=== PATIENT | female | born 1955 | race Two or more races ===

== ENCOUNTER → 2020-04-23 10:19 | Outpatient (BNVA) | payer MEDICARE, MEDICAID, SELFPAY | PROVIDERS: PCP Internal Medicine; Visit Provider Hospitalist | DX: J44.9 Chronic obstructive pulmonary disease, unspecified (principal); R06.00 Dyspnea, unspecified; G47.33 Obstructive sleep apnea (adult) (pediatric); Z79.84 Long term (current) use of oral hypoglycemic drugs; Z99.89 Dependence on other enabling machines and devices | CPT/HCPCS: 99202; 99212 ==

== ENCOUNTER → 2020-09-25 10:28 | Outpatient (BNVA) | payer MEDICARE, MEDICAID, SELFPAY | PROVIDERS: PCP Internal Medicine; Visit Provider Hospitalist | DX: R07.9 Chest pain, unspecified (principal); R06.00 Dyspnea, unspecified; G47.33 Obstructive sleep apnea (adult) (pediatric); Z99.89 Dependence on other enabling machines and devices; J41.0 Simple chronic bronchitis; R05 Cough; T46.4X5A Adverse effect of angiotensin-converting-enzyme inhibitors, initial encounter | CPT/HCPCS: 99212 ==

== ENCOUNTER → 2021-02-28 14:45 | Outpatient (BNVA) | payer MEDICARE, MEDICAID, SELFPAY | PROVIDERS: PCP Internal Medicine; Visit Provider Hospitalist | DX: R07.9 Chest pain, unspecified (principal); R06.00 Dyspnea, unspecified; G47.33 Obstructive sleep apnea (adult) (pediatric); J44.9 Chronic obstructive pulmonary disease, unspecified; R05.9 Cough, unspecified; T44.5X5A Adverse effect of predominantly beta-adrenoreceptor agonists, initial encounter; Z88.0 Allergy status to penicillin; Z88.2 Allergy status to sulfonamides; Z91.041 Radiographic dye allergy status; Z99.89 Dependence on other enabling machines and devices; Z91.19 Patient's noncompliance with other medical treatment and regimen | CPT/HCPCS: 99212 ==

== ENCOUNTER 2021-09-26 14:13 | Outpatient (REF) | payer MEDICARE, MEDICAID, SELFPAY ==
--- NOTE | ~2021-09-26 | XR_ITS ---
EXAMINATION: XR CHEST CLINICAL INFORMATION: Interstitial pulmonary disease COMPARISON: None TECHNIQUE: 2 views of the chest were obtained. FINDINGS: The cardiac and mediastinal contours are normal. The lungs are clear. There is no pleural effusion or pneumothorax. There are degenerative changes of the spine. XR/XR chest 2V IMPRESSION: No evidence for acute disease in the chest.
[2021-09-26 15:00] LABS: MANUAL DIFF FLAG NO
[2021-09-26 17:01] LABS: Basophils Absolute Auto 0.1 X10*3/uL (0.0-0.2); Basophils Percent Auto 0.6 % (0-2); Eosinophils Absolute Auto 0.2 X10*3/uL (0.0-0.4); Eosinophils Percent Auto 2.5 % (0-4); Hematocrit 41.8 % (37.0-47.0); Hemoglobin 13.3 g/dl (12.0-16.0); Imm Gran Abs Auto 0.03 X10*3/uL (0.00-0.03); Imm Gran Pct Auto 0.3 % (0.0-0.4); Lymphocytes Absolute Auto 4.2 X10*3/uL (1.2-4.9); Lymphocytes Percent Auto 43.8 % (20-40); Mean Corpuscular HGB Conc 31.8 g/dl (31.0-35.0); Mean Corpuscular Hemoglobin 26.6 pg (27.0-33.0); Mean Corpuscular Volume 83.6 fL (80.0-98.0); Mean Platelet Volume 10.6 fL (9.4-12.3); Monocytes Absolute Auto 0.7 X10*3/uL (0.1-1.2); Monocytes Percent Auto 7.5 % (2-11); Neutrophils Absolute Auto 4.3 x10*3/uL (2.0-8.3); Neutrophils Percent Auto 45.3 % (45-73); Platelet Count 327 X10*3/uL (160-400); Red Cell Distribution Width 13.5 % (11.0-16.0); White Blood Count 9.6 X10*3/uL (4.8-10.8)
[2021-09-26 18:19] LABS: Erythrocyte Sedimentation Rate 26 MM/HR (0-20)
[2021-09-29 14:57] LABS: Anti Nuclear Antibody Screen NEGATIVE (NEGATIVE)
[2021-10-04 14:37] LABS: Asperg fumigatus Precip Abs NEGATIVE (NEGATIVE); Micropoly faeni Abs NEGATIVE (NEGATIVE); Pigeon serum Abs NEGATIVE (NEGATIVE); Saccharo pora viridis Abs NEGATIVE (NEGATIVE); Thermo candidus Abs NEGATIVE (NEGATIVE); Thermoa vulgaris #1 NEGATIVE (NEGATIVE)
== END 2021-09-26 14:14 | disposition home or self-care (01) ==
LOC: HO.XRAY 14:13
PROVIDERS: PCP Internal Medicine; Visit Provider Hospitalist
DX: R07.9 Chest pain, unspecified (principal); R06.00 Dyspnea, unspecified; J41.0 Simple chronic bronchitis; G47.33 Obstructive sleep apnea (adult) (pediatric); T46.4X5A Adverse effect of angiotensin-converting-enzyme inhibitors, initial encounter; Z99.89 Dependence on other enabling machines and devices
CPT/HCPCS: 36415; 71046; 82785; 85025; 85652; 86003; 86038; 86039; 86331; 86606; 86609; 99212

== ENCOUNTER → 2021-12-19 10:12 | Outpatient (BNVA) | payer MEDICARE, SELFPAY | PROVIDERS: PCP Internal Medicine; Visit Provider Hospitalist | DX: R07.9 Chest pain, unspecified (principal); J84.9 Interstitial pulmonary disease, unspecified; J41.0 Simple chronic bronchitis; R06.00 Dyspnea, unspecified; T46.4X5A Adverse effect of angiotensin-converting-enzyme inhibitors, initial encounter | CPT/HCPCS: 99212 ==

== ENCOUNTER → 2022-07-20 09:11 | Outpatient (BNVA) | payer MEDICARE, SELFPAY | PROVIDERS: PCP Family Medicine; Visit Provider Hospitalist | DX: J41.0 Simple chronic bronchitis (principal); R07.9 Chest pain, unspecified; R06.00 Dyspnea, unspecified; T46.4X5D Adverse effect of angiotensin-converting-enzyme inhibitors, subsequent encounter | CPT/HCPCS: 99212 ==

== ENCOUNTER 2022-10-08 09:34 | Outpatient (REF) | payer MEDICARE, SELFPAY ==
--- NOTE | 2022-10-08 10:48 | PFT_ITS ---
INDICATION: COPD. SPIROMETRY: FEV1 to FVC of 77% with an FEV1 of 1.32 L, which is 49% predicted and an FVC of 1.72 L, which is 50% predicted. Significant response to bronchodilators noted. [id number] was decreased down to 42% predicted. LUNG VOLUMES: Total lung capacity 71% predicted with an expiratory reserve volume of 29% predicted. DIFFUSION CAPACITY: DLCO 54% predicted. COMPARISON: None available. INTERPRETATION: No obstructive ventilatory defect. The patient did have a significant response to bronchodilators noted and evidence of significant small airway disease, likely from reactive airways disease. The patient also has a severe decrease in the maximum voluntary ventilation secondary to likely deconditioning although cannot rule out neuromuscular conditions. The patient also has a restrictive ventilatory defect consistent with mild to moderate restrictive lung disease and a decrease in the expiratory reserve volume secondary to an elevated BMI. There is a moderate diffusion impairments that corrects to almost normal and correcting for the alveolar volume, likely secondary to hyperexpansion of the lungs. Clinical correlation warranted. MD KENDRA Anne/SCHUYLER / [id number]
== END 2022-10-08 09:35 | disposition home or self-care (01) ==
LOC: HO.RESP 09:34
PROVIDERS: PCP Family Medicine; Visit Provider Hospitalist
DX: J41.0 Simple chronic bronchitis (principal)
CPT/HCPCS: 94010; 94727; 94729

== ENCOUNTER → 2022-11-09 09:32 | Outpatient (BNVA) | payer MEDICARE, SELFPAY | PROVIDERS: Visit Provider Hospitalist | DX: J41.0 Simple chronic bronchitis (principal) | CPT/HCPCS: 94618; 99212 ==

== ENCOUNTER 2023-02-12 10:02 | Outpatient (REF) | payer MEDICARE, SELFPAY ==
--- NOTE | ~2023-02-12 | XR_ITS ---
EXAMINATION: XR CHEST CLINICAL INFORMATION: Reason for Exam R07.9 - Chest pain, unspecified COMPARISON: Chest radiograph 09/26/2021 TECHNIQUE: 2 views of the chest FINDINGS: Lines and tubes: None. Streaky right lower lung airspace opacities likely reflecting atelectasis. No pleural effusion. No pneumothorax. Unchanged cardiomediastinal silhouette. XR/XR chest 2V IMPRESSION: Streaky right lower lung airspace opacities likely reflecting atelectasis.
== END 2023-02-12 10:03 | disposition home or self-care (01) ==
LOC: HO.XRAY 10:02
PROVIDERS: PCP Family Medicine; Visit Provider Hospitalist
DX: J41.0 Simple chronic bronchitis (principal); R07.9 Chest pain, unspecified; R06.00 Dyspnea, unspecified; Z99.81 Dependence on supplemental oxygen
CPT/HCPCS: 71046; 99212

== ENCOUNTER 2023-02-12 10:02 | Outpatient (AMB) | payer MEDICARE, SELFPAY ==
--- NOTE | 2023-02-12 10:07 | MHC.OFFVIS ---
Intake Vital Signs 02/12/23 10:09 Height 5 ft 7 in Weight 222 lb BMI 34.8 Pulse 90 Pulse Source Pulse Oximeter Pulse Oximetry (%) 92 Intake Visit Reasons: copd Roving Hand Required: No Allergies Penicillins Allergy (Severe, Verified 02/12/23 10:11) Rash/Hives Sulfa (Sulfonamide Antibiotics) Allergy (Severe, Verified 02/12/23 10:11) Rash/Hives Contrast Dye Allergy (Severe, Uncoded 02/12/23 10:11) Rash HPI HPI Comments History of Present Illness Details The patient is a 67-year-old woman known history of COPD. She also complains of significant dyspnea on exertion even with minimal activity. She does have a home health aide that helps her with her activities of daily living. However she prefers not to have somebody help her with her bathing.. Therefore, she does get short of breath when she is taking a shower. She has been using the in cruise and also the Symbicort. Both inhalers have been helpful for her. It appears that with any activity she becomes very tachycardic. The patient does not desaturate below 94% which is reassuring. Also to note the patient gets short of breath with activity she also developed chest pressure. She does states she had a cardiac evaluation in the past although I do not have that available to review. In addition to that the patient has been complaining of worsening dry cough. Moderate severity. Her respiratory exam is pretty unremarkable. This is likely IVY-inhibitor related cough adverse effect. Explained to the patient we can try providing some cough suppressant. But, if the cough is no better she would be best to change the IVY-inhibitor to an ARB. 12/19/2021 the patient is here for a pulmonary follow-up visit. She continues to have difficulty with breathing. She did try the Trelegy but she did not like it. She rather be on Symbicort. Therefore will switch her back to soon record Spiriva. I did teach her how to use the Spiriva device that she has not use before. I did believe is the powder that was bothering her throat when she was using the inhaler making her symptoms worse. In the meantime the patient does have evidence of dyspnea on exertion. Will plan to do an overnight oximetry on room air to assess for any nocturnal hypoxia in view of her underlying COPD. She continues to be on the azithromycin 3 times a week for chronic bronchitis with good effect. 07/20/2022 the the patient is here for pulmonary follow-up visit. He did have the overnight oximetry done demonstrating that she does need oxygen at nighttime. She did start the oxygen at nighttime and has been affecting beneficial. All those she feels like she also needs the oxygen with activity. I did recommend that she undergo pulmonary function studies and a 6 minute walk test during the next visit in order to see if she qualifies for oxygen supplementation with portability. She is continue to use Symbicort and also the Spiriva. She is missing the rescue inhaler which has then to the pharmacy. She start using the antibiotics at this time. Clinically the patient is doing well from a respiratory status except that she still having dyspnea on exertion. Once we have her PFTs will consider pulmonary rehabilitation as well as the supplementation of oxygen with portability. In addition to this, the patient has been concerned because she did have a CT scan of the chest at [facility] to the lung cancer screening program. She was called and told that she needs a repeat CT scan in 3 months. Will request a copy of that result in order to understand the circumstances. 11/09/2022 the patient is here for pulmonary follow-up visit. She is complaining of worsening dyspnea on exertion. She is using the oxygen at nighttime and also please it on during the daytime because the shortness of breath. her shortness of breath is moderate In severity. Sometimes even at rest. She has been using all her respiratory medications. We did go for brief walking oximetry in the patient did desaturate down to 88% with activity she was visibly dyspneic with a dyspnea score of 8/10. The patient did well with the oxygen. She was placed on 2 L pulse Maintaining a pulse ox of 94%. Therefore, will start the patient on oxygen with a conserving device for portability outside of the home. She is already using it at nighttime. She is participating in the lung cancer screening program for at [facility]. She was found to have an opacity or density on her CT scan and referred to thoracic surgery. She had a repeat CT scan demonstrating resolution of the opacity in density suggesting infectious process. Her last CT scan was back in June 2022. 02/12/2023 the patient is here for pulmonary follow-up visit. The patient has not been feeling well. Complaining of chest discomfort and back discomfort. Hard to take a deep breath in. She has been struggling with the fact that she has not been able to get a portable oxygen concentrator. Will go ahead and request 1 again from the [employer]. She does have the oxygen at nighttime that she uses. The patient does have diminished breath sounds at the bases primarily. Will have her get a chest x-ray at this time. If abnormal will go ahead and request additional imaging studies. The patient has not been using the Spiriva inhaler because she does not tolerated well. Therefore will go ahead and switch her over to Breztri in order for her to be optimized on her respiratory therapy. PENDING SALE TO [facility] Medical History (Updated 09/26/21 @ 14:38 by Hamilton Akhtar MD) ILD (interstitial lung disease) Cough due to IVY inhibitor Dyspnea YAMILETH on CPAP COPD (chronic obstructive pulmonary disease) Family History (Updated 04/23/20 @ 21:04 by Hamilton Akhtar MD) Other Asthma Social History (Updated 02/28/21 @ 14:59 by Triny Farfan [facility]) Patient Tobacco Use Status: Never used Tobacco Review of Systems Const Reports difficulty sleeping, Reports headache(s) and Denies night sweats ENT Denies change in voice, Reports headache(s), Denies lip swelling, Denies mouth pain, Reports nasal congestion, Reports nasal discharge and Denies tongue swelling Card Denies chest pain, Reports dyspnea and Reports dyspnea on exertion Resp Reports cough, Reports dyspnea, Reports dyspnea on exertion and Denies wheezing GI Denies abdominal pain Musc Denies no additional complaints Neuro Denies Neuro-related abnormal movements and Reports headache(s) Psych Denies no additional complaints José/Lymph Denies easy bleeding and Denies lymphadenopathy Aller/Immun Denies lip swelling, Denies tongue swelling and Denies wheezing Physical Exam Vital Signs: Last Vital Signs Pulse 90 02/12/23 10:09 Pulse Ox 92 02/12/23 10:09 BMI result Body Mass Index 34.8 Const General: alert Neck Neck: Yes normal visual inspection, Yes full ROM and Yes no lymphadenopathy Chest Chest palpation & inspection: normal inspection of the chest Resp Auscultation: no wheezes and diminished lung sounds Cardio Rate: regular rate Rhythm: regular rhythm Heart sounds: S1 normal heart sound present and S2 normal heart sound present GI Palpation (GI): Soft to palpation and nontender Auscultation: normal bowel sounds Skin General skin exam: rashes and/or lesions noted Assessment & Plan Assessment & Plan (1) Dyspnea: Comment: multifactorial Code(s): R06.00 - Dyspnea, unspecified Qualifiers: Dyspnea type: dyspnea on exertion Qualified Code(s): R06.00 - Dyspnea, unspecified (2) COPD (chronic obstructive pulmonary disease): Code(s): J44.9 - Chronic obstructive pulmonary disease, unspecified Qualifiers: COPD type: chronic bronchitis Chronic bronchitis type: simple Qualified Code(s): J41.0 - Simple chronic bronchitis Plan stop Symbicort and SPiriva start Breztri DENNIS as needed CXR stopped Azithromycin MWF start 2L/pulse oxygen with activity, requesting POC for better portability out side of the home continue oxygen 2L/min supplementation with sleep Follow-up 4-6 months Orders: Orders XR chest 2V 02/12/23 R07.9 - Chest pain, unspecified Medications: New fppujdknhh-aldnkssv-umdjzmlrsg 160-9-4.8 mcg/actuation (Breztri Aerosphere) 2 inhalations inhalation BID 10.7 grams 11RF Coding Level of Care Code Est Pt Level 4 (33721) Diagnoses Dyspnea on exertion R06.00 Dyspnea type: dyspnea on exertion Simple chronic bronchitis J41.0 COPD type: chronic bronchitis Chronic bronchitis type: simple Time Spent (min) 17
[2023-02-12 10:09] VITALS: PULSE 90; O2SAT 92; BMI 34.8
== END 2023-02-12 10:27 | disposition home or self-care (01) ==
PROVIDERS: PCP Family Medicine; Visit Provider Hospitalist
DX: R06.00 Dyspnea, unspecified (principal); J41.0 Simple chronic bronchitis
CPT/HCPCS: 99214

== ENCOUNTER 2023-05-28 13:43 | Outpatient (AMB) | payer MEDICARE, SELFPAY ==
[2023-05-28 13:49] VITALS: PULSE 80; O2SAT 93; BMI 34.7
--- NOTE | 2023-05-28 13:49 | MHC.OFFVIS ---
Intake Vital Signs 05/28/23 13:49 Height 5 ft 7 in Weight 221 lb 12.56 oz BMI 34.7 Pulse 80 Pulse Source Pulse Oximeter Pulse Oximetry (%) 93 Oxygen Delivery Method Room Air Intake Visit Reasons: COPD [employer] Platemaker Required: No Allergies Penicillins Allergy (Severe, Verified 05/28/23 13:51) Rash/Hives Sulfa (Sulfonamide Antibiotics) Allergy (Severe, Verified 05/28/23 13:51) Rash/Hives Contrast Dye Allergy (Severe, Uncoded 05/28/23 13:51) Rash HPI HPI Comments History of Present Illness Details The patient is a 67-year-old woman known history of COPD. She also complains of significant dyspnea on exertion even with minimal activity. She does have a home health aide that helps her with her activities of daily living. However she prefers not to have somebody help her with her bathing.. Therefore, she does get short of breath when she is taking a shower. She has been using the in cruise and also the Symbicort. Both inhalers have been helpful for her. It appears that with any activity she becomes very tachycardic. The patient does not desaturate below 94% which is reassuring. Also to note the patient gets short of breath with activity she also developed chest pressure. She does states she had a cardiac evaluation in the past although I do not have that available to review. In addition to that the patient has been complaining of worsening dry cough. Moderate severity. Her respiratory exam is pretty unremarkable. This is likely IVY-inhibitor related cough adverse effect. Explained to the patient we can try providing some cough suppressant. But, if the cough is no better she would be best to change the IVY-inhibitor to an ARB. 12/19/2021 the patient is here for a pulmonary follow-up visit. She continues to have difficulty with breathing. She did try the Trelegy but she did not like it. She rather be on Symbicort. Therefore will switch her back to soon record Spiriva. I did teach her how to use the Spiriva device that she has not use before. I did believe is the powder that was bothering her throat when she was using the inhaler making her symptoms worse. In the meantime the patient does have evidence of dyspnea on exertion. Will plan to do an overnight oximetry on room air to assess for any nocturnal hypoxia in view of her underlying COPD. She continues to be on the azithromycin 3 times a week for chronic bronchitis with good effect. 07/20/2022 the the patient is here for pulmonary follow-up visit. He did have the overnight oximetry done demonstrating that she does need oxygen at nighttime. She did start the oxygen at nighttime and has been affecting beneficial. All those she feels like she also needs the oxygen with activity. I did recommend that she undergo pulmonary function studies and a 6 minute walk test during the next visit in order to see if she qualifies for oxygen supplementation with portability. She is continue to use Symbicort and also the Spiriva. She is missing the rescue inhaler which has then to the pharmacy. She start using the antibiotics at this time. Clinically the patient is doing well from a respiratory status except that she still having dyspnea on exertion. Once we have her PFTs will consider pulmonary rehabilitation as well as the supplementation of oxygen with portability. In addition to this, the patient has been concerned because she did have a CT scan of the chest at [facility] to the lung cancer screening program. She was called and told that she needs a repeat CT scan in 3 months. Will request a copy of that result in order to understand the circumstances. 11/09/2022 the patient is here for pulmonary follow-up visit. She is complaining of worsening dyspnea on exertion. She is using the oxygen at nighttime and also please it on during the daytime because the shortness of breath. her shortness of breath is moderate In severity. Sometimes even at rest. She has been using all her respiratory medications. We did go for brief walking oximetry in the patient did desaturate down to 88% with activity she was visibly dyspneic with a dyspnea score of 8/10. The patient did well with the oxygen. She was placed on 2 L pulse Maintaining a pulse ox of 94%. Therefore, will start the patient on oxygen with a conserving device for portability outside of the home. She is already using it at nighttime. She is participating in the lung cancer screening program for at [facility]. She was found to have an opacity or density on her CT scan and referred to thoracic surgery. She had a repeat CT scan demonstrating resolution of the opacity in density suggesting infectious process. Her last CT scan was back in June 2022. 02/12/2023 the patient is here for pulmonary follow-up visit. The patient has not been feeling well. Complaining of chest discomfort and back discomfort. Hard to take a deep breath in. She has been struggling with the fact that she has not been able to get a portable oxygen concentrator. Will go ahead and request 1 again from the [employer]. She does have the oxygen at nighttime that she uses. The patient does have diminished breath sounds at the bases primarily. Will have her get a chest x-ray at this time. If abnormal will go ahead and request additional imaging studies. The patient has not been using the Spiriva inhaler because she does not tolerated well. Therefore will go ahead and switch her over to Breztri in order for her to be optimized on her respiratory therapy. 05/28/2023 the patient is here for a pulmonary follow-up visit. She has been complaining worsening shortness of breath. She also has been feeling dizzy with vertigo and nausea. She is got back from [place]. She has mild cold. It may be a viral labyrinthitis. The patient has been using the Breztri inhaler with good effect although recently she got the Symbicort instead that does not work as good for her. I will make sure to clarify her medications as she should be on the Breztri inhaler. In addition to that the patient should be using her oxygen. She did get a portable oxygen concentrator delivered through her [employer] company. Therefore, I did teach her to use it and she is going to start using it as this time. Using the oxygen will provide her with relief of her work of breathing and hopefully can work on increasing her exercise activity and deep breathing. We did look at her x-ray from February 2023 demonstrating some minimal atelectasis. She is going to work on deep breathing exercises at this time. [facility] Medical History (Updated 05/28/23 @ 14:13 by Hamilton Akhtar MD) ILD (interstitial lung disease) Cough due to IYV inhibitor Dyspnea YAMILETH on CPAP COPD (chronic obstructive pulmonary disease) Family History (Updated 04/23/20 @ 21:04 by Hamilton Akhtar MD) Other Asthma Social History (Updated 02/28/21 @ 14:59 by HANNAH Wallace) Patient Tobacco Use Status: Never used Tobacco Review of Systems Const Reports difficulty sleeping and Denies night sweats ENT Denies change in voice, Reports vertigo, Reports dizziness, Denies lip swelling, Denies mouth pain, Reports nasal congestion, Reports nasal discharge and Denies tongue swelling Card Denies chest pain, Reports dyspnea and Reports dyspnea on exertion Resp Reports cough, Reports dyspnea, Reports dyspnea on exertion and Denies wheezing GI Denies abdominal pain Musc Denies no additional complaints Neuro Denies Neuro-related abnormal movements, Reports vertigo and Reports dizziness Psych Denies no additional complaints José/Lymph Denies easy bleeding and Denies lymphadenopathy Aller/Immun Denies lip swelling, Denies tongue swelling and Denies wheezing Physical Exam Vital Signs: Last Vital Signs Pulse 80 05/28/23 13:49 Pulse Ox 93 05/28/23 13:49 Oxygen Delivery Method Room Air 05/28/23 13:49 BMI result Body Mass Index 34.7 Const General: alert Neck Neck: Yes normal visual inspection, Yes full ROM and Yes no lymphadenopathy Chest Chest palpation & inspection: normal inspection of the chest Resp Effort & Inspection: normal respiratory effort Auscultation: no wheezes and diminished lung sounds Cardio Rate: regular rate Rhythm: regular rhythm Heart sounds: S1 normal heart sound present and S2 normal heart sound present GI Palpation (GI): Soft to palpation and nontender Auscultation: normal bowel sounds Skin General skin exam: rashes and/or lesions noted Assessment & Plan Assessment & Plan (1) Dyspnea: Comment: multifactorial Code(s): R06.00 - Dyspnea, unspecified Qualifiers: Dyspnea type: dyspnea on exertion Qualified Code(s): R06.00 - Dyspnea, unspecified (2) COPD (chronic obstructive pulmonary disease): Code(s): J44.9 - Chronic obstructive pulmonary disease, unspecified Qualifiers: COPD type: chronic bronchitis Chronic bronchitis type: simple Qualified Code(s): J41.0 - Simple chronic bronchitis (3) Vertigo: Code(s): R42 - Dizziness and giddiness Plan continue Breztri DENNIS as needed Meclizine as needed for vertigo start 2L/pulse oxygen with activity with POC continue oxygen 2L/min supplementation with sleep Follow-up 6 months Medications: New meclizine 25 mg (2 x 12.5 mg) PO BID PRN 30 tabs 1RF dizziness 10 days Refilled ewfzczvvkw-eduzpqxw-uxxbepymwu 160-9-4.8 mcg/actuation (Breztri Aerosphere) 2 inhalations inhalation BID 10.7 grams 11RF Discontinued budesonide-formoterol 160-4.5 mcg/actuation (Symbicort) Discontinued Reason: Doctor's Order 2 puffs inhalation BID 10.2 ea 11RF J44.9 - Chronic obstructive pulmonary disease, unspecified Coding Level of Care Code Est Pt Level 4 (64951) Diagnoses Dyspnea on exertion R06.00 Dyspnea type: dyspnea on exertion Simple chronic bronchitis J41.0 COPD type: chronic bronchitis Chronic bronchitis type: simple Vertigo R42 Time Spent (min) 17
== END 2023-05-28 14:03 | disposition home or self-care (01) ==
PROVIDERS: PCP Family Medicine; Visit Provider Hospitalist
DX: R06.00 Dyspnea, unspecified (principal); J41.0 Simple chronic bronchitis; R42 Dizziness and giddiness
CPT/HCPCS: 99214

== ENCOUNTER → 2023-05-28 13:43 | Outpatient (BNVA) | payer MEDICARE, SELFPAY | PROVIDERS: PCP Family Medicine; Visit Provider Hospitalist | DX: J41.0 Simple chronic bronchitis (principal); R42 Dizziness and giddiness; R06.00 Dyspnea, unspecified | CPT/HCPCS: 99212 ==

== ENCOUNTER 2023-12-06 09:18 | Outpatient (AMB) | payer MEDICARE, MEDICAID, SELFPAY ==
--- NOTE | 2023-12-06 09:22 | MHC.OFFVIS ---
Vital Signs 12/06/23 09:25 Height 5 ft 7 in Weight 213 lb BMI 33.4 Pulse 89 Pulse Source Pulse Oximeter Pulse Oximetry (%) 94 Oxygen Delivery Method Room Air Intake Visit Reasons: COPD Tray Line Supervisor Required: No Allergies Penicillins Allergy (Severe, Verified 12/06/23 09:26) Rash/Hives Sulfa (Sulfonamide Antibiotics) Allergy (Severe, Verified 12/06/23 09:26) Rash/Hives Contrast Dye Allergy (Severe, Uncoded 12/06/23 09:26) Rash HPI Comments Details: The patient is a 68-year-old woman known history of COPD. She also complains of significant dyspnea on exertion even with minimal activity. She does have a home health aide that helps her with her activities of daily living. However she prefers not to have somebody help her with her bathing.. Therefore, she does get short of breath when she is taking a shower. She has been using the in cruise and also the Symbicort. Both inhalers have been helpful for her. It appears that with any activity she becomes very tachycardic. The patient does not desaturate below 94% which is reassuring. Also to note the patient gets short of breath with activity she also developed chest pressure. She does states she had a cardiac evaluation in the past although I do not have that available to review. In addition to that the patient has been complaining of worsening dry cough. Moderate severity. Her respiratory exam is pretty unremarkable. This is likely IVY-inhibitor related cough adverse effect. Explained to the patient we can try providing some cough suppressant. But, if the cough is no better she would be best to change the IVY-inhibitor to an ARB. 12/19/2021 the patient is here for a pulmonary follow-up visit. She continues to have difficulty with breathing. She did try the Trelegy but she did not like it. She rather be on Symbicort. Therefore will switch her back to soon record Spiriva. I did teach her how to use the Spiriva device that she has not use before. I did believe is the powder that was bothering her throat when she was using the inhaler making her symptoms worse. In the meantime the patient does have evidence of dyspnea on exertion. Will plan to do an overnight oximetry on room air to assess for any nocturnal hypoxia in view of her underlying COPD. She continues to be on the azithromycin 3 times a week for chronic bronchitis with good effect. 07/20/2022 the the patient is here for pulmonary follow-up visit. He did have the overnight oximetry done demonstrating that she does need oxygen at nighttime. She did start the oxygen at nighttime and has been affecting beneficial. All those she feels like she also needs the oxygen with activity. I did recommend that she undergo pulmonary function studies and a 6 minute walk test during the next visit in order to see if she qualifies for oxygen supplementation with portability. She is continue to use Symbicort and also the Spiriva. She is missing the rescue inhaler which has then to the pharmacy. She start using the antibiotics at this time. Clinically the patient is doing well from a respiratory status except that she still having dyspnea on exertion. Once we have her PFTs will consider pulmonary rehabilitation as well as the supplementation of oxygen with portability. In addition to this, the patient has been concerned because she did have a CT scan of the chest at [facility] to the lung cancer screening program. She was called and told that she needs a repeat CT scan in 3 months. Will request a copy of that result in order to understand the circumstances. 11/09/2022 the patient is here for pulmonary follow-up visit. She is complaining of worsening dyspnea on exertion. She is using the oxygen at nighttime and also please it on during the daytime because the shortness of breath. her shortness of breath is moderate In severity. Sometimes even at rest. She has been using all her respiratory medications. We did go for brief walking oximetry in the patient did desaturate down to 88% with activity she was visibly dyspneic with a dyspnea score of 8/10. The patient did well with the oxygen. She was placed on 2 L pulse Maintaining a pulse ox of 94%. Therefore, will start the patient on oxygen with a conserving device for portability outside of the home. She is already using it at nighttime. She is participating in the lung cancer screening program for at [facility]. She was found to have an opacity or density on her CT scan and referred to thoracic surgery. She had a repeat CT scan demonstrating resolution of the opacity in density suggesting infectious process. Her last CT scan was back in June 2022. 02/12/2023 the patient is here for pulmonary follow-up visit. The patient has not been feeling well. Complaining of chest discomfort and back discomfort. Hard to take a deep breath in. She has been struggling with the fact that she has not been able to get a portable oxygen concentrator. Will go ahead and request 1 again from the [employer]. She does have the oxygen at nighttime that she uses. The patient does have diminished breath sounds at the bases primarily. Will have her get a chest x-ray at this time. If abnormal will go ahead and request additional imaging studies. The patient has not been using the Spiriva inhaler because she does not tolerated well. Therefore will go ahead and switch her over to Breztri in order for her to be optimized on her respiratory therapy. 05/28/2023 the patient is here for a pulmonary follow-up visit. She has been complaining worsening shortness of breath. She also has been feeling dizzy with vertigo and nausea. She is got back from [place]. She has mild cold. It may be a viral labyrinthitis. The patient has been using the Breztri inhaler with good effect although recently she got the Symbicort instead that does not work as good for her. I will make sure to clarify her medications as she should be on the Breztri inhaler. In addition to that the patient should be using her oxygen. She did get a portable oxygen concentrator delivered through her [employer] company. Therefore, I did teach her to use it and she is going to start using it as this time. Using the oxygen will provide her with relief of her work of breathing and hopefully can work on increasing her exercise activity and deep breathing. We did look at her x-ray from February 2023 demonstrating some minimal atelectasis. She is going to work on deep breathing exercises at this time. 12/06/2023 the patient is here for a pulmonary follow-up visit. Overall the patient has been doing okay. She continues with her respiratory medications as prescribed. She also continues use the oxygen with activity and sleep. This has been affecting beneficial. The patient unfortunately still having shortness of breath. Moderate severity with activity. Although she is not exercising. We talked about importance of conditioning. She will look into starting an exercise program. I did give her the online pulmonary rehabilitation website. I also gave her additional ideas. Her son is with her and he wants to help her. In the meantime the patient did not have her CT scans and she had a CT scan in the ER back in 02/26/2023. She will be scheduled to have a lung cancer screening CT scan 02/27/2024. Will plan to follow-up sometime after that so we can repeat the CT scan. In the meantime she is going to continue with current respiratory therapy and oxygen therapy. If she has any other issues prior to that she will call for an earlier assessment. [facility] Medical History (Updated 05/28/23 @ 14:13 by Hamilton Akhtar MD) ILD (interstitial lung disease) Cough due to IVY inhibitor Dyspnea YAMILETH on CPAP COPD (chronic obstructive pulmonary disease) Family History (Updated 04/23/20 @ 21:04 by Hamilton Akhtar MD) Other Asthma Social History (Updated 02/28/21 @ 14:59 by Triny Farfan [facility]) Patient Tobacco Use Status: Never used Tobacco Review of Systems Const Reports difficulty sleeping and Denies night sweats ENT Denies change in voice, Denies vertigo, Denies dizziness, Denies lip swelling, Denies mouth pain, Reports nasal congestion, Reports nasal discharge and Denies tongue swelling Card Denies chest pain and Reports dyspnea on exertion Resp Reports cough, Reports dyspnea on exertion and Denies wheezing GI Denies abdominal pain Musc Denies no additional complaints Neuro Denies Neuro-related abnormal movements, Denies vertigo and Denies dizziness Psych Denies no additional complaints José/Lymph Denies easy bleeding and Denies lymphadenopathy Aller/Immun Denies lip swelling, Denies tongue swelling and Denies wheezing Physical Exam Vital Signs: Last Vital Signs Pulse 89 12/06/23 09:25 Pulse Ox 94 12/06/23 09:25 Oxygen Delivery Method Room Air 12/06/23 09:25 BMI result Body Mass Index 33.4 Const General: alert Neck Neck: Yes normal visual inspection, Yes full ROM and Yes no lymphadenopathy Chest Chest palpation & inspection: normal inspection of the chest Resp Effort & Inspection: normal respiratory effort Auscultation: no wheezes and diminished lung sounds Cardio Rate: regular rate Rhythm: regular rhythm Heart sounds: S1 normal heart sound present and S2 normal heart sound present GI Palpation (GI): Soft to palpation and nontender Auscultation: normal bowel sounds Skin General skin exam: rashes and/or lesions noted Assessment & Plan Assessment & Plan (1) Dyspnea: Comment: multifactorial Code(s): R06.00 - Dyspnea, unspecified Category: Medical Qualifiers: Dyspnea type: dyspnea on exertion Qualified Code(s): R06.00 - Dyspnea, unspecified (2) COPD (chronic obstructive pulmonary disease): Code(s): J44.9 - Chronic obstructive pulmonary disease, unspecified Category: Medical Qualifiers: COPD type: chronic bronchitis Chronic bronchitis type: simple Qualified Code(s): J41.0 - Simple chronic bronchitis Plan continue Breztri DENNIS as needed continue 2L/pulse oxygen with activity with POC continue oxygen 2L/min supplementation with sleep LDCT 02/2024 Follow-up 6 months Coding Level of Care Code Est Pt Level 4 (43135) Diagnoses Dyspnea on exertion R06.00 Dyspnea type: dyspnea on exertion Simple chronic bronchitis J41.0 COPD type: chronic bronchitis Chronic bronchitis type: simple Time Spent (min) 16
[2023-12-06 09:25] VITALS: PULSE 89; O2SAT 94; BMI 33.4
== END 2023-12-06 09:43 | disposition home or self-care (01) ==
PROVIDERS: PCP Family Medicine; Visit Provider Hospitalist
DX: R06.00 Dyspnea, unspecified (principal); J41.0 Simple chronic bronchitis
CPT/HCPCS: 99214

== ENCOUNTER → 2023-12-06 09:18 | Outpatient (BNVA) | payer OTHER, SELFPAY | PROVIDERS: PCP Family Medicine; Visit Provider Hospitalist | DX: J41.0 Simple chronic bronchitis (principal); R06.00 Dyspnea, unspecified; Z99.81 Dependence on supplemental oxygen; Z79.899 Other long term (current) drug therapy | CPT/HCPCS: 99212 ==

== ENCOUNTER 2024-03-06 08:50 | Outpatient (AMB) | payer OTHER, MEDICAID, SELFPAY ==
[2024-03-06 09:07] VITALS: BP 118/70; PULSE 76; O2SAT 93; BMI 31.9
--- NOTE | 2024-03-06 09:07 | A.OFFVIS_ITS ---
Vital Signs 03/06/24 09:07 Height 5 ft 7 in Weight 204 lb BMI 31.9 BP 118/70 Blood Pressure Location Lt brachial Position Sitting Pulse 76 Pulse Source Pulse Oximeter Pulse Oximetry (%) 93 Oxygen Delivery Method Room Air Intake Visit Reasons: COPD Plc Controls Engineer Required: No Allergies Penicillins Allergy (Severe, Verified 03/06/24 09:10) Rash/Hives Sulfa (Sulfonamide Antibiotics) Allergy (Severe, Verified 03/06/24 09:10) Rash/Hives Contrast Dye Allergy (Severe, Uncoded 03/06/24 09:10) Rash HPI Comments Details: The patient is a 68-year-old woman known history of COPD. She also complains of significant dyspnea on exertion even with minimal activity. She does have a home health aide that helps her with her activities of daily living. However she prefers not to have somebody help her with her bathing.. Therefore, she does get short of breath when she is taking a shower. She has been using the in cruise and also the Symbicort. Both inhalers have been helpful for her. It appears that with any activity she becomes very tachycardic. The patient does not desaturate below 94% which is reassuring. Also to note the patient gets short of breath with activity she also developed chest pressure. She does states she had a cardiac evaluation in the past although I do not have that nick ilable to review. In addition to that the patient has been complaining of worsening dry cough. Moderate severity. Her respiratory exam is pretty unremarkable. This is likely IVY-inhibitor related cough adverse effect. Explained to the patient we can try providing some cough suppressant. But, if the cough is no better she would be best to change the IVY-inhibitor to an ARB. 12/19/2021 the patient is here for a pulmonary follow-up visit. She continues to have difficulty with breathing. She did try the Trelegy but she did not like it. She rather be on Symbicort. Therefore will switch her back to soon record Spiriva. I did teach her how to use the Spiriva device that she has not use before. I did believe is the powder that was bothering her throat when she was using the inhaler making her symptoms worse. In the meantime the patient does have evidence of dyspnea on exertion. Will plan to do an overnight oximetry on room air to assess for any nocturnal hypoxia in view of her underlying COPD. She continues to be on the azithromycin 3 times a week for chronic bronchitis with good effect. 07/20/2022 the the patient is here for pulmonary follow-up visit. He did have the overnight oximetry done demonstrating that she does need oxygen at nighttime. She did start the oxygen at nighttime and has been affecting beneficial. All those she feels like she also needs the oxygen with activity. I did recommend that she undergo pulmonary function studies and a 6 minute walk test during the next visit in order to see if she qualifies for oxygen supplementation with portability. She is continue to use Symbicort and also the Spiriva. She is missing the rescue inhaler which has then to the pharmacy. She start using the antibiotics at this time. Clinically the patient is doing well from a respiratory status except that she still having dyspnea on exertion. Once we have her PFTs will consider pulmonary rehabilitation as well as the supplementation of oxygen with portability. In addition to this, the patient has been concerned because she did have a CT scan of the chest at [facility] to the lung cancer screening program. She was called and told that she needs a repeat CT scan in 3 months. Will request a copy of that result in order to understand the circumstances. 11/09/2022 the patient is here for pulmonary follow-up visit. She is complaining of worsening dyspnea on exertion. She is using the oxygen at nighttime and also please it on during the daytime because the shortness of breath. her shortness of breath is moderate In severity. Sometimes even at rest. She has been using all her respiratory medications. We did go for brief walking oximetry in the patient did desaturate down to 88% with activity she was visibly dyspneic with a dyspnea score of 8/10. The patient did well with the oxygen. She was placed on 2 L pulse Maintaining a pulse ox of 94%. Therefore, will start the patient on oxygen with a conserving device for portability outside of the home. She is already using it at nighttime. She is participating in the lung cancer screening program for at [facility]. She was found to have an opacity or density on her CT scan and referred to thoracic surgery. She had a repeat CT scan demonstrating resolution of the opacity in density suggesting infectious process. Her last CT scan was back in June 2022. 02/12/2023 the patient is here for pulmonary follow-up visit. The patient has not been feeling well. Complaining of chest discomfort and back discomfort. Hard to take a deep breath in. She has been struggling with the fact that she has not been able to get a portable oxygen concentrator. Will go ahead and request 1 again from the [employer] She does have the oxygen at nighttime that she uses. The patient does have diminished breath sounds at the bases primarily. Will have her get a chest x-ray at this time. If abnormal will go ahead and request additional imaging studies. The patient has not been using the Spiriva inhaler because she does not tolerated well. Therefore will go ahead and switch her over to Breztri in order for her to be optimized on her respiratory therapy. 05/28/2023 the patient is here for a pulmonary follow-up visit. She has been complaining worsening shortness of breath. She also has been feeling dizzy with vertigo and nausea. She is got back from [place]. She has mild cold. It may be a viral labyrinthitis. The patient has been using the Breztri inhaler with good effect although recently she got the Symbicort instead that does not work as good for her. I will make sure to clarify her medications as she should be on the Breztri inhaler. In addition to that the patient should be using her oxygen. She did get a portable oxygen concentrator delivered through her [employer] company. Therefore, I did teach her to use it and she is going to start using it as this time. Using the oxygen will provide her with relief of her work of breathing and hopefully can work on increasing her exercise activity and deep breathing. We did look at her x-ray from February 2023 demonstrating some minimal atelectasis. She is going to work on deep breathing exercises at this time. 12/06/2023 the patient is here for a pulmonary follow-up visit. Overall the patient has been doing okay. She continues with her respiratory medications as prescribed. She also continues use the oxygen with activity and sleep. This has been affecting beneficial. The patient unfortunately still having shortness of breath. Moderate severity with activity. Although she is not exercising. We talked about importance of conditioning. She will look into starting an exercise program. I did give her the online pulmonary rehabilitation website. I also gave her additional ideas. Her son is with her and he wants to help her. In the meantime the patient did not have her CT scans and she had a CT scan in the ER back in 02/26/2023. She will be scheduled to have a lung cancer screening CT scan 02/27/2024. Will plan to follow-up sometime after that so we can repeat the CT scan. In the meantime she is going to continue with current respiratory therapy and oxygen therapy. If she has any other issues prior to that she will call for an earlier assessment. 03/06/2024 the patient is here for a pulmonary follow-up visit. Overall she is doing okay. Still complaining of right-sided back pain. Primarily musculoskeletal. Moderate severity. She is trying [id number] medications. Partially helpful. She is concerned about her lungs though. She did have a CT scan of the chest as part of the lung cancer screening program at [facility]. I did review with her. Patient has small pulmonary nodule but is on the left hemithorax. Does not have any nodular densities on the right. In addition to that she does have some emphysema. I did reassure her that the pain is not coming from her lung or pleura and is musculoskeletal. She will continue with current therapies. In the meantime the patient has been using oxygen. The oxygen therapy has been affecting beneficial. She is having some issues with her coverage. She is going to look into was going on with the [employer]. During the office visit the patient was walked on room air and she did desaturate down to 88%. On 2 L pulse she was able to maintain a pulse ox of 94% with activity therefore she needs to continue using her POC with activity at this time. [facility] Medical History (Updated 05/28/23 @ 14:13 by Hamilton Akhtar MD) ILD (interstitial lung disease) Cough due to IVY inhibitor Dyspnea YAMILETH on CPAP COPD (chronic obstructive pulmonary disease) Family History (Updated 04/23/20 @ 21:04 by Hamilton Akhtar MD) Other Asthma Social History (Updated 02/28/21 @ 14:59 by Triny Farfan Carlin) Patient Tobacco Use Status: Never used Tobacco Review of Systems Const Reports difficulty sleeping and Denies night sweats ENT Denies change in voice, Denies vertigo, Denies dizziness, Denies lip swelling, Denies mouth pain, Reports nasal congestion, Reports nasal discharge and Denies tongue swelling Card Denies chest pain and Reports dyspnea on exertion Resp Reports cough, Reports dyspnea on exertion and Denies wheezing GI Denies abdominal pain Musc Denies no additional complaints Neuro Denies Neuro-related abnormal movements, Denies vertigo and Denies dizziness Psych Denies no additional complaints José/Lymph Denies easy bleeding and Denies lymphadenopathy Aller/Immun Denies lip swelling, Denies tongue swelling and Denies wheezing Physical Exam Vital Signs: Last Vital Signs Pulse 76 03/06/24 09:07 BP 118/70 03/06/24 09:07 Pulse Ox 93 03/06/24 09:07 Oxygen Delivery Method Room Air 03/06/24 09:07 BMI result Body Mass Index 31.9 Const General: alert Neck Neck: Yes normal visual inspection, Yes full ROM and Yes no lymphadenopathy Chest Chest palpation & inspection: normal inspection of the chest Resp Effort & Inspection: normal respiratory effort Auscultation: no wheezes and diminished lung sounds Cardio Rate: regular rate Rhythm: regular rhythm Heart sounds: S1 normal heart sound present and S2 normal heart sound present GI Palpation (GI): Soft to palpation and nontender Auscultation: normal bowel sounds Skin General skin exam: rashes and/or lesions noted Office Procedures 6 Minute Walk Time:: 12:46 SPO2 % at rest: 95 Pulse at rest: 67 SPO2 % during excercise: 88 Pulse during excercise: 89 Distance in yards walked: 200 Mariluz Score: 5 Supplemental Oxygen: The patient was ambulated on room air desaturating down to 88%. She was placed on 2 L pulse maintaining pulse ox 94%. Needs to continue POC with activity. [id number] - 6 Minute Walk Assessment & Plan Assessment & Plan (1) Dyspnea: Comment: multifactorial Code(s): R06.00 - Dyspnea, unspecified Category: Medical Qualifiers: Dyspnea type: dyspnea on exertion Qualified Code(s): R06.00 - Dyspnea, unspecified (2) COPD (chronic obstructive pulmonary disease): Code(s): J44.9 - Chronic obstructive pulmonary disease, unspecified Category: Medical Qualifiers: COPD type: chronic bronchitis Chronic bronchitis type: simple Qualified Code(s): J41.0 - Simple chronic bronchitis Plan continue Breztri DENNIS as needed continue 2L/pulse oxygen with activity with POC continue oxygen 2L/min supplementation with sleep LDCT 02/2024-stable Follow-up 6-8 months Coding Level of Care Code Est Pt Level 4 (63483) Diagnoses Dyspnea on exertion R06.00 Dyspnea type: dyspnea on exertion Simple chronic bronchitis J41.0 COPD type: chronic bronchitis Chronic bronchitis type: simple CPT Codes Coding ([id number]) Time Spent (min) 16
[2024-03-06 12:46] VITALS: PULSE 67; O2SAT 95
== END 2024-03-06 09:26 | disposition home or self-care (01) ==
PROVIDERS: PCP Family Medicine; Visit Provider Hospitalist
DX: R06.00 Dyspnea, unspecified (principal); J41.0 Simple chronic bronchitis
CPT/HCPCS: 94618; 99214

== ENCOUNTER → 2024-03-06 08:50 | Outpatient (BNVA) | payer OTHER, MEDICAID, SELFPAY | PROVIDERS: PCP Family Medicine; Visit Provider Hospitalist | DX: J41.0 Simple chronic bronchitis (principal); R06.00 Dyspnea, unspecified | CPT/HCPCS: 94618; 99212 ==

== ENCOUNTER 2024-11-23 10:17 | Outpatient (AMB) | payer OTHER, MEDICAID, SELFPAY ==
[2024-11-23 10:29] VITALS: BP 94/48; PULSE 71; O2SAT 91; BMI 33.3
--- NOTE | 2024-11-23 10:29 | MHC.OFFVIS ---
Vital Signs 11/23/24 10:29 Height 5 ft 7 in Weight 212 lb 11.937 oz BMI 33.3 BP 94/48 L Blood Pressure Location Lt brachial Position Sitting Pulse 71 Pulse Source Pulse Oximeter Pulse Oximetry (%) 91 L Oxygen Delivery Method Room Air Intake Visit Reasons: COPD Allergies Penicillins Allergy (Severe, Verified 11/23/24 10:33) Rash/Hives Sulfa (Sulfonamide Antibiotics) Allergy (Severe, Verified 11/23/24 10:33) Rash/Hives Contrast Dye Allergy (Severe, Uncoded 03/06/24 09:10) Rash HPI Comments Details: The patient is a 69-year-old woman known history of COPD. She also complains of significant dyspnea on exertion even with minimal activity. She does have a home health aide that helps her with her activities of daily living. However she prefers not to have somebody help her with her bathing.. Therefore, she does get short of breath when she is taking a shower. She has been using the in cruise and also the Symbicort. Both inhalers have been helpful for her. It appears that with any activity she becomes very tachycardic. The patient does not desaturate below 94% which is reassuring. Also to note the patient gets short of breath with activity she also developed chest pressure. She does states she had a cardiac evaluation in the past although I do not have that available to review. In addition to that the patient has been complaining of worsening dry cough. Moderate severity. Her respiratory exam is pretty unremarkable. This is likely IVY-inhibitor related cough adverse effect. Explained to the patient we can try providing some cough suppressant. But, if the cough is no better she would be best to change the IVY-inhibitor to an ARB. 12/19/2021 the patient is here for a pulmonary follow-up visit. She continues to have difficulty with breathing. She did try the Trelegy but she did not like it. She rather be on Symbicort. Therefore will switch her back to soon record Spiriva. I did teach her how to use the Spiriva device that she has not use before. I did believe is the powder that was bothering her throat when she was using the inhaler making her symptoms worse. In the meantime the patient does have evidence of dyspnea on exertion. Will plan to do an overnight oximetry on room air to assess for any nocturnal hypoxia in view of her underlying COPD. She continues to be on the azithromycin 3 times a week for chronic bronchitis with good effect. 07/20/2022 the the patient is here for pulmonary follow-up visit. He did have the overnight oximetry done demonstrating that she does need oxygen at nighttime. She did start the oxygen at nighttime and has been affecting beneficial. All those she feels like she also needs the oxygen with activity. I did recommend that she undergo pulmonary function studies and a 6 minute walk test during the next visit in order to see if she qualifies for oxygen supplementation with portability. She is continue to use Symbicort and also the Spiriva. She is missing the rescue inhaler which has then to the pharmacy. She start using the antibiotics at this time. Clinically the patient is doing well from a respiratory status except that she still having dyspnea on exertion. Once we have her PFTs will consider pulmonary rehabilitation as well as the supplementation of oxygen with portability. In addition to this, the patient has been concerned because she did have a CT scan of the chest at [facility] to the lung cancer screening program. She was called and told that she needs a repeat CT scan in 3 months. Will request a copy of that result in order to understand the circumstances. 11/09/2022 the patient is here for pulmonary follow-up visit. She is complaining of worsening dyspnea on exertion. She is using the oxygen at nighttime and also please it on during the daytime because the shortness of breath. her shortness of breath is moderate In severity. Sometimes even at rest. She has been using all her respiratory medications. We did go for brief walking oximetry in the patient did desaturate down to 88% with activity she was visibly dyspneic with a dyspnea score of 8/10. The patient did well with the oxygen. She was placed on 2 L pulse Maintaining a pulse ox of 94%. Therefore, will start the patient on oxygen with a conserving device for portability outside of the home. She is already using it at nighttime. She is participating in the lung cancer screening program for at [facility]. She was found to have an opacity or density on her CT scan and referred to thoracic surgery. She had a repeat CT scan demonstrating resolution of the opacity in density suggesting infectious process. Her last CT scan was back in June 2022. 02/12/2023 the patient is here for pulmonary follow-up visit. The patient has not been feeling well. Complaining of chest discomfort and back discomfort. Hard to take a deep breath in. She has been struggling with the fact that she has not been able to get a portable oxygen concentrator. Will go ahead and request 1 again from the [employer]. She does have the oxygen at nighttime that she uses. The patient does have diminished breath sounds at the bases primarily. Will have her get a chest x-ray at this time. If abnormal will go ahead and request additional imaging studies. The patient has not been using the Spiriva inhaler because she does not tolerated well. Therefore will go ahead and switch her over to Breztri in order for her to be optimized on her respiratory therapy. 05/28/2023 the patient is here for a pulmonary follow-up visit. She has been complaining worsening shortness of breath. She also has been feeling dizzy with vertigo and nausea. She is got back from [place]. She has mild cold. It may be a viral labyrinthitis. The patient has been using the Breztri inhaler with good effect although recently she got the Symbicort instead that does not work as good for her. I will make sure to clarify her medications as she should be on the Breztri inhaler. In addition to that the patient should be using her oxygen. She did get a portable oxygen concentrator delivered through her [employer] company. Therefore, I did teach her to use it and she is going to start using it as this time. Using the oxygen will provide her with relief of her work of breathing and hopefully can work on increasing her exercise activity and deep breathing. We did look at her x-ray from February 2023 demonstrating some minimal atelectasis. She is going to work on deep breathing exercises at this time. 12/06/2023 the patient is here for a pulmonary follow-up visit. Overall the patient has been doing okay. She continues with her respiratory medications as prescribed. She also continues use the oxygen with activity and sleep. This has been affecting beneficial. The patient unfortunately still having shortness of breath. Moderate severity with activity. Although she is not exercising. We talked about importance of conditioning. She will look into starting an exercise program. I did give her the online pulmonary rehabilitation website. I also gave her additional ideas. Her son is with her and he wants to help her. In the meantime the patient did not have her CT scans and she had a CT scan in the ER back in 02/26/2023. She will be scheduled to have a lung cancer screening CT scan 02/27/2024. Will plan to follow-up sometime after that so we can repeat the CT scan. In the meantime she is going to continue with current respiratory therapy and oxygen therapy. If she has any other issues prior to that she will call for an earlier assessment. 03/06/2024 the patient is here for a pulmonary follow-up visit. Overall she is doing okay. Still complaining of right-sided back pain. Primarily musculoskeletal. Moderate severity. She is trying opuo-tey-anzmaep medications. Partially helpful. She is concerned about her lungs though. She did have a CT scan of the chest as part of the lung cancer screening program at [facility]. I did review with her. Patient has small pulmonary nodule but is on the left hemithorax. Does not have any nodular densities on the right. In addition to that she does have some emphysema. I did reassure her that the pain is not coming from her lung or pleura and is musculoskeletal. She will continue with current therapies. In the meantime the patient has been using oxygen. The oxygen therapy has been affecting beneficial. She is having some issues with her coverage. She is going to look into was going on with the [employer], [employer]. During the office visit the patient was walked on room air and she did desaturate down to 88%. On 2 L pulse she was able to maintain a pulse ox of 94% with activity therefore she needs to continue using her POC with activity at this time. 11/23/2024 the patient is here for a pulmonary follow-up visit. Overall the patient has been doing fair she does have significant right-sided chest discomfort. Hurts when she breathes. Likely pleuritic in nature likely musculoskeletal especially since it is reproducible. She did have a CT scan through the lung cancer screening program back in the fall of 2023 and she really does not have anything in the right hemithorax to explain her discomfort at least from a pulmonary standpoint. She does have small pulmonary nodules and some emphysema. Will go ahead and try her on some small amount of Haskins 2 inhibitor to see if this provides some relief. She can not talk to her primary care doctor if this is something that she needs to continue. But for now she can trial it once a day for 2-4 weeks. The patient follow-up in 6-8 months if she has any issues prior to this she will call for an earlier assessment. She is going to continue with the current respiratory therapy as prescribed. Also, she needs help because she has not gotten any oxygen tubing or supplies from her DME company regarding her home oxygen concentrator. Therefore will reach out to the DME company for them to provide her the service that she needs. [facility] Medical History (Updated 11/23/24 @ 15:20 by Hamilton Akhtar MD) ILD (interstitial lung disease) Cough due to IVY inhibitor Dyspnea YAMILETH on CPAP COPD (chronic obstructive pulmonary disease) Family History (Updated 04/23/20 @ 21:04 by Hamilton Akhtar MD) Other Asthma Social History Patient Tobacco Use Status: Never used Tobacco Review of Systems Const Reports difficulty sleeping and Denies night sweats ENT Denies change in voice, Denies vertigo, Denies dizziness, Denies lip swelling, Denies mouth pain, Reports nasal congestion, Reports nasal discharge and Denies tongue swelling Card Denies chest pain and Reports dyspnea on exertion Resp Reports cough, Reports pain on inspiration, Reports pain with cough, Reports dyspnea on exertion and Denies wheezing GI Denies abdominal pain Musc Denies no additional complaints Neuro Denies Neuro-related abnormal movements, Denies vertigo and Denies dizziness Psych Denies no additional complaints José/Lymph Denies easy bleeding and Denies lymphadenopathy Aller/Immun Denies lip swelling, Denies tongue swelling and Denies wheezing Physical Exam Vital Signs: Last Vital Signs Pulse 71 11/23/24 10:29 BP 94/48 L 11/23/24 10:29 Pulse Ox 91 L 11/23/24 10:29 Oxygen Delivery Method Room Air 11/23/24 10:29 BMI result Body Mass Index 33.3 Const General: alert Neck Neck: Yes normal visual inspection, Yes full ROM and Yes no lymphadenopathy Chest Chest palpation & inspection: tenderness rib and clavicle Resp Effort & Inspection: normal respiratory effort Auscultation: no wheezes and diminished lung sounds Cardio Rate: regular rate Rhythm: regular rhythm Heart sounds: S1 normal heart sound present and S2 normal heart sound present GI Palpation (GI): Soft to palpation and nontender Auscultation: normal bowel sounds Skin General skin exam: rashes and/or lesions noted Assessment & Plan Assessment & Plan (1) Dyspnea: Comment: multifactorial Code(s): R06.00 - Dyspnea, unspecified Category: Medical Qualifiers: Dyspnea type: dyspnea on exertion Qualified Code(s): R06.00 - Dyspnea, unspecified (2) COPD (chronic obstructive pulmonary disease): Code(s): J44.9 - Chronic obstructive pulmonary disease, unspecified Category: Medical Qualifiers: COPD type: chronic bronchitis Chronic bronchitis type: simple Qualified Code(s): J41.0 - Simple chronic bronchitis (3) Chest pain: Comment: likely MS Code(s): R07.9 - Chest pain, unspecified Category: Medical Qualifiers: Chest pain type: unspecified Qualified Code(s): R07.9 - Chest pain, unspecified Plan continue Breztri DENNIS as needed continue 2L/pulse oxygen with activity with POC continue oxygen 2L/min supplementation with sleep LDCT 02/2024-stable trial of celebrex x 2-4 weeks Follow-up 6-8 months Medications: New celecoxib (Celebrex) 50 mg PO DAILY 30 caps 0RF 30 days Coding Level of Care Code Est Pt Level 4 (47571) Complex EM visit Add On G2211 Diagnoses Dyspnea on exertion R06.00 Dyspnea type: dyspnea on exertion Simple chronic bronchitis J41.0 COPD type: chronic bronchitis Chronic bronchitis type: simple Chest pain, unspecified type R07.9 Chest pain type: unspecified Time Spent (min) 17
== END 2024-11-23 11:02 | disposition home or self-care (01) ==
LOC: HO.HPS 10:17
PROVIDERS: PCP Family Medicine; Visit Provider Hospitalist
DX: R06.00 Dyspnea, unspecified (principal); J41.0 Simple chronic bronchitis; R07.9 Chest pain, unspecified
CPT/HCPCS: 99214; G2211

== ENCOUNTER → 2024-11-23 10:17 | Outpatient (BNVA) | payer OTHER, SELFPAY | PROVIDERS: PCP Family Medicine; Visit Provider Hospitalist | DX: J41.0 Simple chronic bronchitis (principal); R06.00 Dyspnea, unspecified; R07.9 Chest pain, unspecified | CPT/HCPCS: 99212 ==

== ENCOUNTER 2024-12-15 11:04 | Outpatient (AMB) | payer OTHER, SELFPAY ==
--- OUTSIDE RECORDS SUMMARY | 2024-12-15 11:07 | XMS_ITS | Clinical Summary ---
Author Organization [facility] [address] [facility] Address [address] [place] [address] Phone Care Team Providers Care Optical Instrument Inspector Name Role Phone Nicolasa Shelton DO Primary Care Provider [phone] Allergies Active Allergy Reactions Criticality Noted Date Comments Iodinated Contrast Media Anaphylaxis High 06/18/2008 Penicillins 04/21/2016 Other Reaction(s): Hives/Urticaria Sulfa (Sulfonamide Antibiotics) 06/18/2008 Other Reaction(s): Hives/Urticaria Medications albuterol HFA (PROAIR HFA ; PROVENTIL HFA ; VENTOLIN HFA) 90 mcg/actuation inhaler USE 2 INHALATIONS EVERY 6 HOURS NEEDED FOR SHORTNESS OF BREATH OR WHEEZING FOR 30 DAYS 10/26/19 24 Active brexpiprazole (Rexulti) 3 mg tablet Take 1 tablet (3 mg total) by mouth 1 (one) time each day. 10/28/19 24 Active zolpidem (AMBIEN) 10 mg tablet Take 1 tablet (10 mg total) by mouth at bedtime. 10/27/19 24 Active budesonide-glycopy r-formoterol (Breztri Aerosphere) 160-9-4.8 mcg/actuation HFA aerosol inhaler inhaler 2 Puffs 2 times daily. 05/28/19 24 Active UNABLE TO FIND Blood Glucose Calibration (OT ULTRA/FASTTK CNTRL SOLN) Solution, E11.65 To use with glucometer 04/16/20 23 Active UNABLE TO FIND Misc. Devices (Commode Bedside) Misc, 1 Device by Does not apply route See Admin Instructions. 03/31/20 23 Active hydrOXYzine pamoate (VISTARIL) 50 mg capsule Take 50 mg by mouth at bedtime. 04/01/20 21 Active sertraline (ZOLOFT) 100 mg tablet 100mg in daytime, 50mg at bedtime 05/26/19 22 Active pen needle, diabetic 32 gauge x needle Use 5 per day 01/02/20 Active SUMAtriptan (IMITREX) 50 mg tablet Take 1 tablet by mouth daily as needed for Migraine. May repeat dose once after 2 hours, if needed. 09/13/19 21 Active traZODone (DESYREL) 100 mg tablet Take 1 Tab by mouth at bedtime. 05/17/19 21 Active aspirin 81 mg EC tablet Take 1 tablet (81 mg total) by mouth 1 (one) time each day. 08/06/19 19 Active rosuvastatin (CRESTOR) 20 mg tablet Take 1 tablet (20 mg total) by mouth 1 (one) time each day. Active mirtazapine (REMERON) 15 mg tablet Take 1 tablet (15 mg total) by mouth at bedtime as needed. 06/04/19 25 Active brimonidine (ALPHAGAN) 0.2 % ophthalmic solution Administer 1 drop into both eyes 2 (two) times a day. 07/15/19 25 Active metoprolol succinate (TOPROL-XL) 100 mg 24 hr tabletIndications: Essential (primary) hypertension Take 1 tablet (100 mg total) by mouth 1 (one) time each day. 90 tablet 3 09/27/19 25 Active blood-glucose sensor (FreeStyle Gia 3 Sensor) deviceIndications: Diabetes mellitus type 2 with neurological manifestations (CMS/HCC V24, CMS/HCC V28) Box = Kit = EA, use one sensor every 14 days. 2 each 5 09/29/19 25 Active blood-glucose,rece iver,cont (FreeStyle Gia 3 [place]) miscIndications:Di abetes mellitus type 2 with neurological manifestations (CMS/HCC V24, CMS/HCC V28) CGM, use with gia sensor 1 each 09/29/19 25 Active insulin lispro (HumaLOG KwikPen Insulin) 100 unit/mL injection pen Use 55 units before meals, three times a day 105 mL 2 09/29/19 25 Active blood-glucose meter kit Use to check sugars three times a day E11.9 1 each 09/29/19 25 Active freestyle 28 gauge lancets Use to check sugars three times a day E11.9 300 each 2 09/29/19 25 Active FreeStyle Test test strip To check sugars three times a day E11.9 300 each 2 09/29/19 25 Active latanoprost (XALATAN) 0.005 % ophthalmic solution instill 1 drop into both eyes every night at bedtime 09/05/19 25 Active venlafaxine XR (EFFEXOR-XR) 75 mg 24 hr capsule Take 1 capsule (75 mg total) by mouth 1 (one) time each day. 09/26/19 25 Active metFORMIN (GLUCOPHAGE) 1,000 mg tabletIndications: Essential (primary) hypertension TAKE 1 TABLET BY MOUTH TWICE A DAY WITH MEALS 180 tablet 10/04/19 25 Active omeprazole (PriLOSEC) [address] capsule TAKE 1 CAPSULE BY MOUTH EVERY DAY 90 capsule 1 10/05/19 25 Active Toujeo SoloStar U-300 Insulin 300 unit/mL (1.5 mL) CONCENTRATED injection pen Use 110 units at bedtime 105 mL 1 10/06/19 25 Active diclofenac (VOLTAREN) 1 % topical gelIndications:Charity anyi osteoarthritis of both knees APPLY 1 G TOPICALLY 3 (THREE) TIMES A DAY. 100 g 2 11/07/19 25 Active lisinopriL (PRINIVIL,ZESTRIL) 30 mg tabletIndications: Essential (primary) hypertension TAKE 1 TABLET BY MOUTH EVERY DAY 90 tablet 1 10/31/19 25 Active Jardiance 25 mg tabletIndications: Type 2 diabetes mellitus with other diabetic neurological complication ([facility] V24, [facility] V28) TAKE 1 TABLET BY MOUTH EVERY DAY 90 tablet 1 10/31/19 25 Active prazosin (MINIPRESS) 1 mg capsule Take 1 capsule (1 mg total) by mouth. at bedtime 11/16/19 25 Active doxepin (SINEquan) 50 mg capsule Take 1 capsule (50 mg total) by mouth at bedtime. at bedtime 06/26/20 25 Active Active Problems Problem Noted Date Diagnosed Date Pure hypercholesterolemia 09/26/2024 Assessment & Plan (11/22/2024 11:42 AM EDT): Recently well-controlled lipid profile without known obstructive CAD. Given her diabetes, ideally would like her LDL closer to 70 if possible. Continue statin. Can intensify to 40 mg if her lipid profile does not improve and/or Zetia. Assessment & Plan (09/26/2024 10:18 AM EDT): Well-controlled lipid profile on current dose statin given DM continue the same. Continue aggressive risk factor modification given her diabetes Class 2 severe obesity due t o excess calories with serious comorbidity and body mass index (BMI) of 35.0 to 35.9 in adult (CMS/[facility] V24, CMS/[facility] V28) 03/06/2024 Gastroesophageal reflux disease 08/03/2023 Abnormal EKG 02/24/2023 Overview (03/06/2024): - Of note, had an echocardiogram in May 2019 which showed mild, concentric left ventricular hypertrophy with normal LV cavity size and systolic function, normal regional wall motion with an ejection fraction of 60 to 65%, no hemodynamically significant valve disease, normal right ventricular size and systolic function - Pharmacologic nuclear stress test in 2016 showed normal perfusion - Both of the above-mentioned tests predated ECG changes Last Assessment & Plan: Poor R wave progression that is new suggestive of possible anterior infarct-age undetermined with new left anterior fascicular block; We will update echocardiogram looking for new wall motion abnormalities/reduced EF-this is also a pattern that can be seen with COPD progression Atypical chest pain 02/24/2023 Assessment & Plan (11/22/2024 11:41 AM EDT): The patient's atypical chest discomfort has not recurred with resumption of her beta-stacy therapy, and her breathlessness has resolved as well. Through shared decision making, we will hold off on any further investigation as her symptoms are managed medically. If her symptoms return, would complete coronary CTA and premedicate for her dye allergy Assessment & Plan (09/26/2024 10:15 AM EDT): The patient reported an episode of chest discomfort yesterday lasting 2 seconds. Her EKG today is nonischemic. She denies any exertional chest discomfort, but does have breathlessness that is increased in the last couple of months. Of note, she has not been on her metoprolol for the last 5 months in her estimation. She states that nobody refilled it for her. This has been refilled today. If her symptoms improve, likely no further testing necessary. If she still has some symptoms back on her beta-stacy, will perform coronary CTA and ensure that she is premedicated for her dye allergy. Continue otherwise her aspirin, IVY inhibitor and statin PVD (peripheral vascular disease) ([facility] V24) 02/24/2023 Overview (03/06/2024): Poor pulses on exam peripherally on 02/24/2023 associated with claudication symptoms Last Assessment & Plan: No symptoms of critical limb ischemia but will obtain BALA with lower extremity arterial duplex ultrasound-mainly to guide risk reduction therapy and medical management in general Palpitations 02/23/2023 Overview (11/22/2024): -Unremarkable Holter in May 2016 showing sinus rhythm with periods of sinus tachycardia but no arrhythmias Assessment & Plan (11/22/2024 11:42 AM EDT): No symptoms back on her beta-stacy. Continue her Toprol at current dose Pulmonary nodules 01/31/2018 Overview (03/06/2024): New nodule 12/2018 7 mm follows with pulmonary Last Assessment & Plan: Ms. Le is a 67 y/o female, former smoker who is part of the [facility]. She was found to have confluent lung opacities in the lower lobes, Lung RADS 0 finding for which a follow up LDCT scan in 3 months was recommended. She presents today for follow up of her most recent CT Scan performed on October 06, 2022 which shows resolution of the bibasilar atelectasis and no new supicious pulmonary nodules. She will be referred back to the [facility] for her annual LDCT scan. She is instructed to call the office with any questions or concerns. Diabetic peripheral neuropathy [place] [place], [facility] V28) 07/02/2017 Type 2 diabetes mellitus wit h eye manifestations ([facility] [place], [facility] V28) 07/02/2017 Microalbuminuria 07/02/2017 Obstructive sleep apnea 03/19/2017 Overview (03/06/2024): [facility]: Date 11/17/2017; SE 60%; SM 85%; REM 21%; RDI 8 (AHI 6), REM (RDI 11 - AHI 11), Central apneas 0; Obstructive apneas 1; Mixed apneas 0; hypopneas 25; RERAs 9; average oxygen saturation 93% (lowest 83% - without saturations <88% for 5% or more of study); PLMs 0. [facility] Polysomnogram treatment study. Date 03/15/2017. SE 59 % SM 63 %; spent 29 % of the study in REM. On CPAP @ 5; RDI 0.2 (AHI 0.2), Central apneas 1; Obstructive apneas 0; Mixed apneas 0; hypopneas 0; RERAs 0; and, average oxygen saturation was 93%. For the entire study, PLMs ~41. - Obstructive Sleep Apnea - mild overall and mild in REM; mostly hypopneas; without sleep related hypoventilation by 2018 polysomnogram. DM (diabetes mellitus), type 2 with renal complications ([facility] [place], [facility] V28) 03/12/2017 Failed back syndrome, lumbar 02/05/2017 Overview (03/06/2024): S/p CT spine 01/2017 sclerotic pseudoarticulation with the vertebral body. Advanced DJD at the L5-S1 disc space with neuroforaminal narrowing right in area where she had prior disectomy. Follows with [facility], ? Spinal stimulator Mural thickening of colon 01/22/2017 Overview (03/06/2024): Referred to GI 01/2017, repeat [facility]SP pending follows with GI Depression 12/21/2016 Fibromyalgia 12/21/2016 Chronic recurrent pancreatitis ([facility] [place], [facility] V28) 07/03/2016 Overview (03/06/2024): Idiopathic, s/p biliary sphincterotomy Diabetic retinopathy ([facility] V24, [facility] V28) 04/21/2016 Glaucoma 04/21/2016 COPD, mild ([facility] V24, [facility] V28) 02/24/2016 Overview (03/06/2024): Remote history of tobacco use. Follows with pulmonary Diabetes mellitus type 2 wit h neurological manifestations ([facility] V24, [facility] V28) 02/03/2016 Chest pain 06/18/2008 Overview (03/06/2024): No objective evidence of ischemia cardiac catheterization x 2 normal with recent normal pharmacologic stress test 05/2019 Hypertension 06/18/2008 Assessment & Plan (11/22/2024 11:42 AM EDT): Well-controlled blood pressure back on her metoprolol. Continue otherwise her lisinopril and Jardiance. Assessment & Plan (09/26/2024 10:16 AM EDT): Blood pressure is well-controlled on her current regimen of SGLT2, IVY inhibitor. Will resume her metoprolol and follow Encounters Date Type Department Care Team Description 12/14/2024 Telephone Internal Medicine - [address] [phone] Nicolasa Shelton DO Results 12/13/2024 9:45 AM EDT Office Visit Internal Medicine - [address] [phone] Nicolasa Shelton DO Hypertension, unspecified type (Primary Dx); Diabetes mellitus type 2 with neurological manifestations ([facility] V24, [facility] V28); Chronic obstructive pulmonary disease, unspecified COPD type ([facility] V24, [facility] V28); Depression, unspecified depression type; Gastroesophageal reflux disease, unspecified whether esophagitis present; Screening for metabolic disorder; Dysuria 11/29/2024 10:45 AM EDT Office Visit Orthopedics - [place] [phone] Bobby Rehman PA Primary osteoarthritis of both knees (Primary Dx) 11/29/2024 Telephone Orthopedics - [address] [phone] Bobby Rehman PA 11/22/2024 11:20 AM EDT Office Visit [facility] [address] [facility] [address] [place] [phone] Zoie Hernandez NP Atypical chest pain (Primary Dx); Primary hypertension; Pure hypercholesterolemia; Palpitations 11/08/2024 Telephone Internal Medicine - [place] [address] [place] [phone] Nicolasa Shelton DO Referral 10/31/2024 Telephone Internal Medicine - [place] [address] [place] [phone] Nicolasa Shelton DO Referral (Pulmonology Insurance Referral) 10/26/2024 10:45 AM EDT Office Visit Orthopedics - [address] [phone] Bobby Rehman PA Primary osteoarthritis of both knees (Primary Dx) 10/12/2024 2:10 PM EDT - 10/12/2024 11:59 PM EDT Hospital Encounter Radiology Department - [address] [phone] Abnormal mammogram Discharge Disposition: Home or Self Care 10/12/2024 10:30 AM EDT Office Visit Orthopedics - [address] [phone] Bobby Rehman PA Primary osteoarthritis of both knees (Primary Dx) 10/04/2024 Telephone Endocrinology - [address] [phone] Patito Simons PA Medication Problem 09/28/2024 11:30 AM EDT Office Visit Orthopedics - [address] [phone] Bobby Rehman PA Chronic pain of both knees (Primary Dx); Primary osteoarthritis of both knees 09/28/2024 10:20 AM EDT - 09/28/2024 11:59 PM EDT Hospital Encounter Radiology Department - [address] [phone] Encounter for screening mammogram for breast cancer Discharge Disposition: Home or Self Care 09/28/2024 9:40 AM EDT Office Visit Endocrinology - [address] [phone] Patito Simons PA Diabetes mellitus type 2 with neurological manifestations (CMS/HCC V24, CMS/HCC V28) (Primary Dx); Hypertension, unspecified type; Microalbuminuria; Pure hypercholesterolemia 09/26/2024 9:40 AM EDT Office Visit [facility] - [facility] [address] [phone] Zoie Hernandez NP Abnormal EKG (Primary Dx); Disease of cardiovascular system; Essential (primary) hypertension; Atypical chest pain; Hypertension, unspecified type; Pure hypercholesterolemia 09/26/2024 Telephone Endocrinology - [address] [phone] Patito Simons PA Referral from Last 3 Months Immunizations Name Administration Dates Next Due Influenza trivalent, 0.5mL ( Fluad) 65yo and older 03/27/2023,01/26/2022,07/15/2021 [place] SARS-CoV-2 COVID-19, mRNA, LNP-S, preservative free 07/19/2021 Pneumococcal conjugate 13 va lent (Prevnar 13, PCV13) 2mo and older 07/15/2021 Pneumococcal polysaccharide 23 valent (Pneumovax 23) 2yo and older 05/11/2018 Tdap Tetanus diptheria acell ular pertussis (Boostrix; Adacel) 7yo and older 07/15/2021 Surgical History Surgery Date Site/Laterality Comments CHOLECYSTECTOMY age 30's PROCEDURE: LAPAROSCOPY, CHOLECYSTECTOMY BACK SURGERY PROCEDURE: HISTORICAL BACK SURGERY HYSTERECTOMY PROCEDURE: HISTORICAL HYSTERECTOMY COLONOSCOPY W/ BIOPSIES 01/29/2016 PROCEDURE: [place] COLONOSCOPY STOMA W/BIOPSY SINGLE/MULTIPLE OTHER SURGICAL HISTORY PROCEDURE: ---- OTHER ----; COMMENT: Biliary sphincterotomy APPENDECTOMY PROCEDURE: HISTORICAL APPENDECTOMY COLONOSCOPY 04/20/2017 PROCEDURE: HISTORICAL COLONOSCOPY; COMMENT: diverticulosis, tubular adenoma BREAST BIOPSY 1990s Left PROCEDURE: BX BREAST; PERC NEEDLE CORE W/IMAG GUID; COMMENT: ? left breast bx neg CHOLECYSTECTOMY PROCEDURE: [place] LAPAROSCOPY SURG CHOLECYSTECTOMY Medical History Medical History Date Comments Hypertension DX:Hypertension Fibromyalgia DX:Fibromyalgia Obesity (BMI 30-39.9) 05/19/2016 DX:Obesity (BMI 30-39.9) Chest pain 06/18/2008 DX:Chest pain Depression 12/21/2016 DX:Depression Diabetic retinopathy ([facility]/ [facility] V24, [facility] V28) 04/21/2016 DX:Diabetic retinopathy ([facility] ) Former tobacco use 06/18/2008 DX:Former tob acco use; COMMENT: 50 yrs quit 2012 Glaucoma 04/21/2016 DX:Glaucoma Recurrent pancreatitis 07/03/2016 DX:Recurr ent pancreatitis; COMMENT: Idiopathic, s/p biliary sphincterotomy Mural thickening of colon 01/22/2017 DX:Mur al thickening of colon; COMMENT: Referred to GI 01/2017, repeat [facility] pending follows with GI Failed back syndrome, lumbar 02/05/2017 DX: Failed back syndrome, lumbar; COMMENT: S/p CT spine 01/2017 sclerotic pseudoarticulation with the vertebral body. Advanced DJD at the L5-S1 disc space with neuroforaminal narrowing right in area where she had prior disectomy. Follows with [facility], ? Spinal stimulator Obstructive sleep apnea 03/19/2017 DX:Obstr uctive sleep apnea; COM[place] [facility] [place] treatment study. Date 03/15/2017 . COPD, mild (CMS/HCC V24, CMS /HCC V28) 02/24/2016 DX:COPD, mild (HCC); COMMENT : Remote history of tobacco use. Follows with pulmonary Diabetes mellitus type 2 wit h neurological manifestations (CMS/HCC V24, CMS/HCC V28) 02/03/2016 DX:Diabetes mellitus type 2 with neurological manifestations (HCC) Diabetic peripheral neuropat hy (CMS/HCC V24, CMS/HCC V28) 07/02/2017 DX:Diabetic peripheral neur opathy (HCC) DM (diabetes mellitus), type 2 with renal complications (CMS/[facility] V24, [facility] V28) 03/12/2017 DX:DM (diabetes mellitus), t ype 2 with renal complications (HCC) Microalbuminuria 07/02/2017 DX:Microalbumin uria Type 2 diabetes mellitus wit h eye manifestations ([facility] V24, [facility] V28) 07/02/2017 DX:Type 2 diabetes mellitus with eye manifestations (HCC) Pulmonary nodules 01/31/2018 DX:Pulmonary n odules Cervical spondylosis without myelopathy DX:Cervical spondylosis with out myelopathy Family History Medical History Relation Name Comments Diabetes Brother 1 Diabetes Brother 2 Diabetes Brother 3 Diabetes Brother 4 Other: No medical conditions Daughter ESRD Father Diabetes Diabetes Mother Other: No medical conditions Sister Diabetes Son [place] Heart attack Son Hyperlipidemia Son Hypertension Son Other: Other Son a FIB Sleep apnea Son Breast cancer Neg Hx Coronary artery disease Neg Hx No p remature CAD Relation Name Status Comments Brother 1 Brother 2 Brother 3 Brother 4 Alive Daughter Alive Father Mother Urosepsis Sister Alive Son Alive Social History Tobacco Use Types Packs/Day Years Used Date Smoking Tobacco: Former Cigarettes 1 37.8 0 05/10/1972 - 02/22/2010 Smokeless Tobacco: Never Tobacco Cessation:Counseling Given: Not Answered Alcohol Use Standard Drinks/Week Comments No 0 (1 standard drink = 0.6 oz pur e alcohol) Comments No Sex and Gender Information Value Date Recorded Sex Assigned at Not on file Legal Sex Female 8:27 AM EST Gender Identity Not on file Sexual Orientation Not on file Obstetrics History Para Term AB IAB SAB Ectopic Multiple Livin g Live Births 2 2 2 2 Date Outcome GA Total Labor Labor/2nd/3rd Weight Sex Type Anes PTL Yohana A1 A5 Name Clin Term Term Last Filed Vital Signs Vital Sign Reading Time Taken Comments Blood Pressure 125/71 12/13/2024 9:33 AM EDT Pulse 100 12/13/2024 9:33 AM EDT Temperature 36.1 C (96.9 F) 09/28/2024 9:51 AM EDT Respiratory Rate 16 11/29/2024 10:27 AM EDT Oxygen Saturation 93% 11/22/2024 11:15 AM EDT Inhaled Oxygen Concentration - - Weight 98.2 kg (216 lb 9.6 oz) 12/13/2024 9:33 A M EDT Height 170.2 cm (5' 7 ) 11/29/2024 10:27 AM EDT Body Mass Index 33.92 11/29/2024 10:27 AM EDT Plan of Treatment Upcoming Encounters Date Type Department Care Team (Late st Contact Info) Description 04/16/2025 10:00 AM EST Office Visit Internal Medicine - [address] [phone] Kate Hull NP [address] [place] [phone] 04/17/2025 11:00 AM EST Office Visit Endocrinology - [place] [address] [place] [phone] Patito Simons PA [address] [place] [address] Health Maintenance Due Date Last Done Comments RSV Immunization Adult Patients (1 - Risk 60-74 years 1-dose series) 2015 Social Influencers of Health Screening 04/18/2022 Medicare Annual Wellness Visit 01/26/2023 01/26/2022 Depression Screening 05/10/2024 Diabetes: Annual Retina Eye Exam 05/26/2024 05/26/2023 Diabetes: Annual Foot Exam 08/02/2024 08/03/2023 COVID-19 Vaccine ( season) 2024 02/23/2024, 03/26/2023, 07/19/2021, Additional history exists [place] Risk Assessment 12/08/2024 12/09/2023 Influenza Vaccine (#1) 2025 , 03/27/2023, 03/26/2023, Additional history exists Lung Cancer Screening (Low Dose CT) 02/27/2025 02/28/2024, 02/27/2024, 07/08/2022, Additional history exists Diabetes: Blood Sugar Control Test (HGBA1C) 04/08/2025 10/06/2024, 06/12/2024, 12/09/2023, Additional history exists Diabetes: Annual Urine Albumin-Creatinine Ratio (uACR) 10/06/2025 10/06/2024, 08/11/2023 Diabetes: Annual GFR (Glomerular Filtration Rate) 12/13/2025 12/13/2024, 06/12/2024, 03/31/2023 Hypertension/CHF/CAD Annual BMP Blood Test 12/13/2025 12/13/2024, 06/12/2024, 03/31/2023 Pneumococcal Vaccine: 50+ Years (3 of 3 - PCV20 or PCV21) 07/15/2026 07/15/2021, 05/11/2018 Breast Cancer Screening 10/12/2026 10/13/19 25, 09/28/2024, 09/17/2023, Additional history exists Colorectal Cancer Screening: Colonoscopy 01/29/2028 01/28/2023 Cholesterol Screening (Lipid Panel) 10/06/2029 10/06/2024, 08/11/2023 DTaP,Tdap,and Td Vaccines (2 - Td or Tdap) 07/16/2031 07/15/2021 Osteoporosis Screening (Bone Density Screening) 07/17/2031 07/16/2021 Hepatitis C Screening Completed 07/28/2021 Zoster Vaccines Completed 07/05/2023, 03/26/2023 HIB Vaccines Aged Out No longer eligi ble based on patient's age to complete this topic HPV Vaccines Aged Out No longer eligi ble based on patient's age to complete this topic Hepatitis A Vaccines Aged Out No long er eligible based on patient's age to complete this topic Hepatitis B Vaccines Aged Out No long er eligible based on patient's age to complete this topic IPV Vaccines Aged Out No longer eligi ble based on patient's age to complete this topic MMR Vaccines Aged Out No longer eligi ble based on patient's age to complete this topic Meningococcal ACWY Vaccine Aged Out N o longer eligible based on patient's age to complete this topic Meningococcal B Vaccine Aged Out No l onger eligible based on patient's age to complete this topic RSV Immunization Patients Under 20 months Aged Out No longer eligible based on patient's age to complete this topic Varicella Vaccines Aged Out No longer eligible based on patient's age to complete this topic Procedures Procedure Name Priority Date/Time Associated Diagnosis Comments HERRMANN URINE CULTURE TUBE Routine 12/13/2024 11:43 AM EDT Dysuria URINALYSIS WITH REFLEX MICROSCOPIC AND CULTURE Routine 12/13/2024 11:26 AM EDT Dysuria COMPREHENSIVE METABOLIC PANEL Routine 12/13/2024 11:26 AM EDT Screening for metabolic disorder URINALYSIS WITH REFLEX MICROSCOPIC AND CULTURE Routine 12/13/2024 11:26 AM EDT Dysuria CULTURE URINE Routine 12/13/2024 11:26 AM EDT Dysuria [place] ARTHROCENTESIS/ASPI RATION/INJECTION MAJOR JOINT/BURSA W/O U/S GUIDANCE Routine 10/26/2024 10:45 AM EDT Primary osteoarthritis of both knees MG MAMMO DIGITAL DIAGNOSTIC W ANGEL RIGHT Routine 10/12/2024 2:31 PM EDT Abnormal mammogram [place] ARTHROCENTESIS/ASPI RATION/INJECTION MAJOR JOINT/BURSA W/O U/S GUIDANCE Routine 10/12/2024 10:30 AM EDT Primary osteoarthritis of both knees HEMOGLOBIN A1C Routine 10/06/2024 8:59 AM EDT Diabetes mellitus type 2 with neurological manifestations (CMS/HCC V24, CMS/HCC V28) MICROALBUMIN CREATININE URINE RATIO Routine 10/06/2024 8:59 AM EDT Diabetes mellitus type 2 with neurological manifestations (CMS/HCC V24, CMS/HCC V28) Microalbuminuria LIPID PANEL WITH REFLEX TO DIRECT LDL Routine 10/06/2024 8:59 AM EDT Diabetes mellitus type 2 with neurological manifestations (CMS/HCC V24, CMS/HCC V28) Pure hypercholesterolemia MG MAMMO DIGITAL SCREENING W ANGEL BILAT Routine 09/28/2024 10:55 AM EDT Encounter for screening mammogram for breast cancer ECG 12-LEAD Routine 09/26/2024 10:19 AM EDT Abnormal EKG CT LUNG SCREENING LOW DOSE Routine 02/28/2024 11:04 AM EDT Solitary pulmonary nodule FALLS RISK ASSESSMENT Routine 12/09/2023 DIABETES FOOT EXAM Routine 08/03/2023 DIABETES EYE EXAM Routine 05/26/2023 COLONOSCOPY Routine 01/28/2023 HEPATITIS C SCREENING Routine 07/28/2021 DXA BONE DENSITY STUDY 1+ SITS AXIAL SKEL Routine 07/16/2021 10:58 AM EST Encounter for screening for osteoporosis from Last 3 Months or Most Recently Relevant to Health Maintenance Results * Herrmann urine culture tube (12/13/2024 11:43 AM EDT) Extra Tube Hold for add-ons. 12/13/2024 3:01 PM EDT [facility] Comment:Auto resulted. Urine Urine specimen obtained by clean catch procedure / Unknown 12/13/2024 11:43 AM EDT 12/13/2024 11:43 AM EDT us Nicolasa Shelton DO LAB URINE ORDERABLES Final Res ult [facility] [address] [place] [address], [place] [phone] * (ABNORMAL) Urinalysis with reflex microscopic and culture (12/13/2024 11:26 AM EDT) Specific [place] Urine 1.015 1.003 - 1.030 LAB URINALYSIS - AUTOMATED METHOD 12/13/2024 2:19 PM EDT [facility] pH, Urine 5.5 5.0 - 8.0 pH LAB URINALYSIS - AUTOMATED METHOD 12/13/2024 2:19 PM [facility] Leukocytes, Urine Small(A) Negative LAB URINALYSIS - AUTOMATED METHOD 12/13/2024 2:19 PM [facility] Nitrite, Urine Negative Negative LAB URINALYSIS - AUTOMATED METHOD 12/13/2024 2:19 PM [facility] Protein, Urine Negative <=Trace mg/dL LAB URINALYSIS - AUTOMATED METHOD 12/13/2024 2:19 PM [facility] Glucose, Urine 500(A) Negative mg/dL LAB URINALYSIS - AUTOMATED METHOD 12/13/2024 2:19 PM [facility] Ketones, Urine Negative Negative mg/dL LAB URINALYSIS - AUTOMATED METHOD 12/13/2024 2:19 PM [facility] Urobilinogen, Urine 0.2 0.2 - 1.0 mg/dL LAB URINALYSIS - AUTOMATED METHOD 12/13/2024 2:19 PM [facility] Bilirubin, Urine Negative Negative LAB URINALYSIS - AUTOMATED METHOD 12/13/2024 2:19 PM [facility] Blood, Urine Negative Negative LAB URINALYSIS - AUTOMATED METHOD 12/13/2024 2:19 PM [facility] RBC, Urine 0.7 0 - 4 /HPF LAB URINALYSIS - AUTOMATED METHOD 12/13/2024 2:19 PM [facility] WBC, Urine 4.0 0 - 4 /HPF LAB URINALYSIS - AUTOMATED METHOD 12/13/2024 2:19 PM [facility] Squamous Epithelial, Urine 16 0 - 60 /LPF LAB URINALYSIS - AUTOMATED METHOD 12/13/2024 2:19 PM [facility] Bacteria, Urine Negative Negative /HPF LAB URINALYSIS - AUTOMATED METHOD 12/13/2024 2:19 PM [facility] Hyaline Casts, Urine 2.0 0 - 3 /LPF LAB URINALYSIS - AUTOMATED METHOD 12/13/2024 2:19 PM [facility] Urine Urine specimen obtained by clean catch procedure / Unknown Non-blood Collection / Unknown 12/13/2024 11:26 AM EDT 12/13/2024 11:26 AM EDT us Nicolasa Shelton DO LAB URINE ORDERABLES Final Res ult [facility] [address] [place] [address], [place] [phone] * (ABNORMAL) Comprehensive metabolic panel (12/13/2024 11:26 AM EDT) Sodium 137 133 - 145 mmol/L LAB CHEMISTRY METHOD 12/13/2024 2:56 PM [facility] Potassium 3.8 3.5 - 5.5 mmol/L LAB CHEMISTRY METHOD 12/13/2024 2:56 PM [facility] Chloride 104 96 - 110 mmol/L LAB CHEMISTRY METHOD 12/13/2024 2:56 PM [facility] CO2 24 21 - 32 mmol/L LAB CHEMISTRY METHOD 12/13/2024 2:56 PM [facility] Anion Gap 9 3 - 11 LAB CHEMISTRY METHOD 12/13/2024 2:56 PM [facility] Glucose 174(H) 70 - 100 mg/dL LAB CHEMISTRY METHOD 12/13/2024 2:56 PM [facility] BUN 13 5 - 25 mg/dL LAB CHEMISTRY METHOD 12/13/2024 2:56 PM [facility] Creatinine 0.85 0.50 - 1.10 mg/dL LAB CHEMISTRY METHOD 12/13/2024 2:56 PM [facility] eGFR 74 >=60 mL/min/1. 73m2 LAB CHEMISTRY METHOD 12/13/2024 2:56 PM EDT [facility] Comment:Calculation based on the Chronic Kidney Disease Epidemiology Collaboration (CKD-EPI) equation refit without adjustment for race. BUN/Creatinine Ratio 15.3 LAB CHEMISTRY METHOD 12/13/2024 2:56 PM T [facility] Calcium 9.3 8.5 - 10.5 mg/dL LAB CHEMISTRY METHOD 12/13/2024 2:56 PM [facility] AST (SGOT) 48(H) 10 - 42 unit/L LAB CHEMISTRY METHOD 12/13/2024 2:56 PM [facility] ALT (SGPT) 69(H) 10 - 60 unit/L LAB CHEMISTRY METHOD 12/13/2024 2:56 PM [facility] Alkaline Phosphatase 64 42 - 121 unit/L LAB CHEMISTRY METHOD 12/13/2024 2:56 PM [facility] Total Protein 7.2 6.0 - 8.0 g/dL LAB CHEMISTRY METHOD 12/13/2024 2:56 PM [facility] Albumin 3.9 3.2 - 5.0 g/dL LAB CHEMISTRY METHOD 12/13/2024 2:56 PM [facility] Total Bilirubin 0.3 0.0 - 1.4 mg/dL LAB CHEMISTRY METHOD 12/13/2024 2:56 PM [facility] Blood Venous blood specimen / Unknown Venipuncture / Unknown 12/13/2024 11:26 AM EDT 12/13/2024 11:26 AM EDT us Nicolasa Shelton DO LAB BLOOD ORDERABLES Final Res ult [facility] [address] [place] [address], * [place] ARTHROCENTESIS/ASPIRATION/INJECTION MAJOR JOINT/BURSA W/O U/S GUIDANCE (10/26/2024 10:45 AM EDT) Narrative Zaret, Bobby, PA - 10/26/2024 10:45 AM EDT NAVIN Rae 10/26/2024 10:43 AM L Inj/Asp: R knee Indications: pain Details: 22 G needle, anterolateral approach Medications: 4 mL lidocaine 1 %; 80 mg methylPREDNISolone acetate 80 mg/mL Outcome: tolerated well, no immediate complications Informed Consent: Site: Knee Laterality: Right Relevant images/test results available and reviewed: yes Health status cleared: Yes Procedure/treatment, purpose, treatment alternatives, risks/potential complications and benefits explained: yes Risk/complications/benefits details: Risks include but are not limited to: The treatment may not accomplish the desired results. Additionally bleeding, infection, damage to tendon, nerve, cartilage, muscle; thinning or lightening of the skin in the area of injection; flushing or redness of the face, elevated blood pressure or blood sugar, allergic reaction, rash, increased pain Benefits include relief of inflammation and pain Patient questions answered: yes Patient agrees, verbalizes understanding, and wants to proceed: yes Consent given by: Patient Informed consent discussion completed by Physician/TEAGAN with patient: Verbal Pre-procedure timeout performed: yes us Bobby HOLDEN IN CLINIC/BEDSIDE ORDERABLES Fin al Result * MG Mammo Digital Diagnostic w Angel Right (10/12/2024 2:31 PM EDT) Anatomical Region Laterality Modality Breast Right Mammography 10/12/2024 2:51 PM EDT Impressions 10/12/2024 3:02 PM EDT RIGHT BREAST: Negative, no evidence of malignancy. Normal interval follow-up is recommended in 12 months. Findings and recommendations were discussed with the patient at the completion of the study. BREAST DENSITY: B - There are scattered areas of fibroglandular density. BI-RADS CATEGORY: 1 - NEGATIVE RECOMMENDATION: Mammography: Return to annual mammography. Mammo Location: [facility], [address] [place] [address], [id number], . -------- FINAL REPORT -------- Dictated By: Anna Hernandez Dictated Date: 10/12/2024 14:51 ET Assigned Physician: Anna Hernandez Reviewed and Electronically Signed By: Anna Hernandez Signed Date: 10/12/2024 15:02 ET Workstation ID: [id number] Transcribed By: Self Edit Transcribed Date: 10/12/2024 14:51 ET Narrative 10/12/2024 3:02 PM EDT HISTORY: Callback from screening for right focal asymmetry in the upper breast middle depth STUDY: Unilateral right diagnostic mammography with tomosynthesis and CAD TECHNIQUE: Unilateral right digital diagnostic mammography is obtained and read in conjunction with computer-aided detection. Tomosynthesis as well as 2-D C view imaging were obtained. Spot compression Tomosynthesis images were also obtained. COMPARISON: Comparison made to multiple prior, most recent September 28, 2024, and most remote December 22, 2011. RIGHT BREAST: Previously suggested focal asymmetry at about 12:00/upper inner quadrant is pliable with the spot compression. On today's images, the local parenchyma is similar to multiple prior studies as far back as 2011. Findings were likely due to overlapping fibroglandular breast tissue. Procedure Note Anna Hernandez MD - 10/12/2024 HISTORY: Callback from screening for right focal asymmetry in the upperbreast middle depth STUDY: Unilateral right diagnostic mammography with tomosynthesis andCAD TECHNIQUE: Unilateral right digital diagnostic mammography is obtained andread in conjunction with computer-aided detection. Tomosynthesis as wellas 2-D C view imaging were obtained. Spot compression Tomosynthesis imageswere also obtained. COMPARISON: Comparison made to multiple prior, most recent September 28, 2024,and most remote December 22, 2011. RIGHT BREAST: Previously suggested focal asymmetry at about 12:00/upperinner quadrant is pliable with the spot compression. On today's images,the local parenchyma is similar to multiple prior studies as far back [id number]. Findings were likely due to overlapping fibroglandular breasttissue. IMPRESSION: RIGHT BREAST: Negative, no evidence of malignancy. Normal intervalfollow-up is recommended in 12 months. Findings and recommendations were discussed with the patient at thecompletion of the study. BREAST DENSITY: B - There are scattered areas of fibroglandular density. BI-RADS CATEGORY: 1 - NEGATIVE RECOMMENDATION: Mammography: Return to annual mammography. Mammo Location: [facility], [address] [place] [address], [id number], . -------- FINAL REPORT -------- Dictated By: Anna Hernandez Dictated Date: 10/12/2024 14:51 ET Assigned Physician: Anna Hernandez Reviewed and Electronically Signed By: Anna Hernandez Signed Date: 10/12/2024 15:02 ET Workstation ID: [id number] Transcribed By: Self Edit Transcribed Date: 10/12/2024 14:51 ET Nicolasa Shelton DO IMG BI PROCEDURES Final Result * [place] ARTHROCENTESIS/ASPIRATION/INJECTION MAJOR JOINT/BURSA W/O U/S GUIDANCE (10/12/2024 10:30 AM EDT) Bobby Christie PA - 10/12/2024 10:30 AM EDT NAVIN Rae 10/12/2024 10:30 AM L Inj/Asp: L knee Indications: pain Details: 22 G needle, anterolateral approach Medications: 4 mL lidocaine 1 %; 80 mg methylPREDNISolone acetate 80 mg/mL Outcome: tolerated well, no immediate complications Informed Consent: Site: Knee Laterality: Left Relevant images/test results available and reviewed: yes Health status cleared: Yes Procedure/treatment, purpose, treatment alternatives, risks/potential complications and benefits explained: yes Risk/complications/benefits details: Risks include but are not limited to: The treatment may not accomplish the desired results. Additionally bleeding, infection, damage to tendon, nerve, cartilage, muscle; thinning or lightening of the skin in the area of injection; flushing or redness of the face, elevated blood pressure or blood sugar, allergic reaction, rash, increased pain Benefits include relief of inflammation and pain Patient questions answered: yes Patient agrees, verbalizes understanding, and wants to proceed: yes Consent given by: Patient Informed consent discussion completed by Physician/TEAGAN with patient: Verbal Pre-procedure timeout performed: yes us Bobby HOLDEN IN CLINIC/BEDSIDE ORDERABLES Fin al Result * (ABNORMAL) Lipid panel with reflex to direct LDL (10/06/2024 8:59 AM EDT) Cholesterol 193 0 - 200 mg/dL LAB CHEMISTRY METHOD 10/06/2024 1:30 PM EDT [facility] Triglycerides 199(H) 0 - 150 mg/dL LAB CHEMISTRY METHOD 10/06/2024 1:30 PM EDT [facility] HDL 55 >=40 mg/dL LAB CHEMISTRY METHOD 10/06/2024 1:30 PM EDT [facility] LDL Calculated 98 0 - 100 mg/dL LAB CHEMISTRY METHOD 10/06/2024 1:30 PM EDT [facility] VLDL Cholesterol Khanh 39.8 mg/dL LAB CHEMISTRY METHOD 10/06/2024 1:30 PM EDT [facility] Non HDL Chol. (LDL+VLDL) 138 <145 mg/dL LAB CHEMISTRY METHOD 10/06/2024 1:30 PM EDT [facility] Chol/HDL Ratio 3.5 0.0 - 4.4 LAB CHEMISTRY METHOD 10/06/2024 1:30 PM EDT [facility] Blood Venous blood specimen / Unknown Venipuncture / Unknown 10/06/2024 8:59 AM EDT 10/06/2024 8:59 AM EDT us Patito HOLDEN LAB BLOOD ORDERABLES Final Resul t [facility] [address] [place] [address], [place] [phone] * Microalbumin creatinine urine ratio (10/06/2024 8:59 AM EDT) Creatinine, Urine 168.0 mg/dL LAB CHEMISTRY METHOD 10/06/2024 12:27 PM EDT [facility] Microalb, Ur 15.7 0.0 - 29.0 mg/L LAB CHEMISTRY METHOD 10/06/2024 12:27 PM EDT [facility] Microalb/Creat Ratio 9 <30 mg/g creat LAB CHEMISTRY METHOD 10/06/2024 12:27 PM EDT [facility] Urine Urine specimen obtained by clean catch procedure / Unknown Non-blood Collection / Unknown 10/06/2024 8:59 AM EDT 10/06/2024 8:59 AM EDT us Patito HOLDEN LAB URINE ORDERABLES Final Resul t [facility] [address] [place] [address], [place] [phone] * (ABNORMAL) Hemoglobin A1c (10/06/2024 8:59 AM EDT) Hemoglobin A1C 7.8(H) <6.5 % LAB CHEMISTRY METHOD 10/06/2024 12:40 PM EDT [facility] Mean Bld Glu Estim. 177 mg/dL LAB CHEMISTRY METHOD 10/06/2024 12:40 PM EDT [facility] Blood Venous blood specimen / Unknown Venipuncture / Unknown 10/06/2024 8:59 AM EDT 10/06/2024 8:59 AM EDT us Patito HOLDEN LAB BLOOD ORDERABLES Final Resul t [facility] [address] [place] [address], [place] [phone] * (ABNORMAL) MG Mammo Digital Screening w Angel bilat (09/28/2024 10:55 AM EDT) Anatomical Region Laterality Modality Breast Bilateral Mammography 09/28/2024 5:36 PM EDT Impressions 09/28/2024 5:41 PM EDT 1. Left: No mammographic evidence of malignancy 2. Right: Indeterminate superior breast middle depth focal asymmetry 3. Scattered fibroglandular tissue BI-RADS CATEGORY: 0 - INCOMPLETE - NEED ADDITIONAL IMAGING EVALUATION RECOMMENDATION: Additional right breast imaging recommended. Right breast CC and MLO spot compression, full-field ML, targeted ultrasound Mammo Location: [facility], [address] [place] [address], [id number], . -------- FINAL REPORT -------- Dictated By: Chikis Wu Dictated Date: 09/28/2024 17:36 ET Assigned Physician: Chikis Wu Reviewed and Electronically Signed By: Chikis Wu Signed Date: 09/28/2024 17:41 ET Workstation ID: [id number] Transcribed By: Self Edit Transcribed Date: 09/28/2024 17:36 ET Narrative 09/28/2024 5:41 PM EDT A BILATERAL DIGITAL 3D SCREENING MAMMOGRAPHY HISTORY: Routine screening. No family history of breast cancer. COMPARISON: Multiple priors dating back to 05/17/2020 Technique: Bilateral full field digital mammography (3D) was performed using standard CC and MLO projections CAD was used to evaluate this mammogram. FINDINGS: Right: Indeterminate superior breast middle depth focal asymmetry Left: No suspicious masses, groups of microcalcification or areas of architectural distortion identified. Stable typically benign parenchymal asymmetries. BREAST DENSITY: B - There are scattered areas of fibroglandular density. Procedure Note Chikis Wu MD - 09/28/2024 A BILATERAL DIGITAL 3D SCREENING MAMMOGRAPHY HISTORY: Routine screening. No family history of breast cancer. COMPARISON: Multiple priors dating back to 05/17/2020 Technique: Bilateral full field digital mammography (3D) was performedusing standard CC and MLO projections CAD was used to evaluate this mammogram. FINDINGS: Right: Indeterminate superior breast middle depth focal asymmetry Left: No suspicious masses, groups of microcalcification or areas ofarchitectural distortion identified. Stable typically benign parenchymalasymmetries. BREAST DENSITY: B - There are scattered areas of fibroglandular density. IMPRESSION: 1. Left: No mammographic evidence of malignancy 2. Right: Indeterminate superior breast middle depth focal asymmetry 3. Scattered fibroglandular tissue BI-RADS CATEGORY: 0 - INCOMPLETE - NEED ADDITIONAL IMAGING EVALUATION RECOMMENDATION: Additional right breast imaging recommended. Right breast CC and MLO spotcompression, full-field ML, targeted ultrasound Mammo Location: [facility], [address] [place] [address], [id number], . -------- FINAL REPORT -------- Dictated By: Chikis Wu Dictated Date: 09/28/2024 17:36 ET Assigned Physician: Chikis Wu Reviewed and Electronically Signed By: Chikis Wu Signed Date: 09/28/2024 17:41 ET Workstation ID: [id number] Transcribed By: Self Edit Transcribed Date: 09/28/2024 17:36 ET Nicolasa Shelton DO IMG BI PROCEDURES Final Result * ECG 12 lead (09/26/2024 10:19 AM EDT) Ventricular Rate ECG 85 BPM GEMUSE Atrial Rate 85 BPM GEMUSE P-R Interval 130 ms GEMUSE QRS Duration 96 ms GEMUSE Q-T Interval 402 ms GEMUSE QTc 478 ms GEMUSE P Wave [place] 35 degrees GEMUSE R [place] -38 degrees GEMUSE T [place] 39 degrees GEMUSE ECG Interpretation Normal sinus rhythm Left axis deviation Poor R wave progression Abnormal ECG When compared with ECG of 26-OCT-2020 15:48, No significant change was found Confirmed by Thao GIRALDO JOHN ([id number]) on 09/26/2024 6:49:25 PM GEMUSE 09/26/2024 9:38 AM EDT 09/26/2024 6:49 PM EDT us Zoie Hernandez MINE SUPERINTENDENT ECG ORDERABLES Edited Result - Final GEMUSE * CT LUNG SCREENING LOW DOSE (02/28/2024 11:04 AM EDT) Anatomical Region Laterality Modality Computed Tomogra phy 02/27/2024 9:26 AM EDT Narrative 02/28/2024 11:04 AM EDT [facility] Diagnostic Imaging Department [address] [place] [id number] Patient: MOUNIKA LE /Age/Sex: 1955 - 68 - F Unit#: [id number] Location/Status: [facility] CLI Mnemonic/Ordering Site: [facility] Ordering Physician: DALILA ORTEGA MD CT Lung Screening Low Dose - 02/27/24929 Report Status:Signed PROCEDURE: CT chest lung cancer screening low dose examination. INDICATION: CT lung screening. TECHNIQUE: Chest CT without intravenous contrast was performed. Low-dose examination was performed. Reformatted images were evaluated. DOSE: CTDIvol: 4.8mGy. Total exam DLP: 162.2mGy-cm COMPARISON: CT chest February 2023 FINDINGS: NODULES: A 2 mm nodule is noted in the left lower lobe that is not visible previously (series 3 image 147). Other findings are stable. LUNGS: Minimal emphysematous changes. OTHER: Limited views of the upper abdomen appear normal. Coronary atherosclerotic disease. Atherosclerotic disease of the aorta without aneurysm. Mild degenerative changes in the thoracic spine. IMPRESSION: Small pulmonary nodule is noted in the left chest. Lung-RADS 2. Follow up examination is advised in one year. Dictating Physician: LIEN CHANEY MD Electronically Signed by: LIEN CHANEY MD Dic Date/Time: 02/28/24 1058 Sign date/Time: 02/28/24 1104 Procedure Note Lien Chaney MD - 03/07/2024 [facility] Diagnostic Imaging Department [address] [place] [id number] Patient: MOUNIKA LE /Age/Sex: 1955 - 68 - F Unit#: [id number] Location/Status: [facility] CLI Mnemonic/Ordering Site: [facility] [place] Ordering Physician: DALILA ORTEGA MD CT Lung Screening Low Dose - 02/27/24 - 8430 Report Status:Signed PROCEDURE: CT chest lung cancer screening low dose examination. INDICATION: CT lung screening. TECHNIQUE: Chest CT without intravenous contrast was performed.Low-dose examination was performed. Reformatted images were evaluated. DOSE: CTDIvol: 4.8mGy. Total exam DLP: 162.2mGy-cm COMPARISON: CT chest February 2023 FINDINGS: NODULES: A 2 mm nodule is noted in the left lower lobe that is notvisible previously (series 3 image 147). Other findings are stable. LUNGS: Minimal emphysematous changes. OTHER: Limited views of the upper abdomen appear normal. Coronary atherosclerotic disease. Atherosclerotic disease of the aorta withoutaneurysm. Mild degenerative changes in the thoracic spine. IMPRESSION: Small pulmonary nodule is noted in the left chest. Lung-RADS 2. Follow up examination is advised in one year. Dictating Physician: LIEN CHANEY MD Electronically Signed by: LIEN CHANEY MD Dic Date/Time: 02/28/24 1058 Sign date/Time: 02/28/24 1104 Result [facility] Dalila Ortega MD IMG CT PROCEDURES Final Result * Falls Risk Assessment (12/09/2023) [facility] Falls Risk Assessment abstracted Result [facility] Provider HEALTH MAINTENANCE Final Result * Diabetes Foot Exam (08/03/2023) [facility] Diabetes: Annual Foot Exam abstracted Result [facility] Provider HEALTH MAINTENANCE Final Result * Diabetes Eye Exam (05/26/2023) [facility] Diabetes: Annual Retina Eye Exam abstracted Result [facility] Provider HEALTH MAINTENANCE Final Result * Colonoscopy (01/28/2023) [facility] Colonoscopy abstracted, no interpretation Anatomical Region Laterality Modality Other Result [facility] Provider HEALTH MAINTENANCE Final Result * Hepatitis C Screening (07/28/2021) [facility] Hepatitis C Screening abstracted Result [facility] Provider HEALTH MAINTENANCE Final Result * DXA BONE DENSITY STUDY 1+ SITS AXIAL SKEL (07/16/2021 10:58 AM EST) Anatomical Region Laterality Modality Bone Densitometr y 03/14/2021 10:1 7 AM EDT Narrative 07/17/2021 12:49 PM EST BONE DENSITY (DEXA) Lumbar Spine T-score is 0.4. (SD relative to 20-29 y/o adult) Z-score is 2.2. (SD relative to age matched peers) This is considered normal by WHO criteria. Left Hip T-score is -0.7. Z-score is 0.6. This is considered normal by WHO criteria. IMPRESSION: This patient is considered to have normal bone density by WHO criteria. [facility] Department of Internal Medicine recommends using National Osteoporosis Foundation (NOF) guidelines in treatment decisions related to osteoporosis. NOF guidelines suggest considering treatment for postmenopausal women and men aged 50 or older presenting with the following: History of hip or vertebral fracture. T-score = -2.5 (DXA) at the femoral neck, total hip, or spine, after appropriate evaluation to exclude secondary causes. Low bone mass (T-score between -1.0 and -2.5 at the femoral neck or spine) AND a 10-year probability of a hip fracture = 3% OR a 10-year probability of a major osteoporosis-related fracture = 20% based on the [place]-adapted WHO algorithm Please note that all treatment decisions require clinical judgment and consideration of individual patient factors, including patient preferences, co-morbidities, previous drug use, risk factors not captured in the FRAX model (e.g., frailty, falls, vitamin D deficiency, increased bone turnover, interval significant decline in bone density) and possible under- or over-estimation of fracture risk by FRAX. Optional alternative screening schedule based on dee dee Simeon., [facility] May 28, 2011 for patients with osteopenia (based on hip BMD T-score) is as follows: * advanced osteopenia (T scores -2.00 to -2.49), BMD testing every year * moderate osteopenia (T scores -1.50 to -1.99), BMD testing every 5 years mild osteopenia or normal BMD (T scores -1.50 and higher), BMD testing every 15 years Procedure Note Jenna Alfonso MD - 04/28/2022 BONE DENSITY (DEXA) Lumbar Spine T-score is 0.4. (SD relative to 20-29 y/o adult) Z-score is 2.2. (SD relative to age matched peers) This is considered normal by WHO criteria. Left Hip T-score is -0.7. Z-score is 0.6. This is considered normal by WHO criteria. IMPRESSION: This patient is considered to have normal bone density by WHO criteria. [facility] Department of Internal Medicine recommendsusing National Osteoporosis Foundation (NOF) guidelines in treatment decisions related toosteoporosis. NOF guidelines suggest considering treatment for postmenopausal women and menaged 50 or older presenting with the following: History of hip or vertebral fracture. T-score = -2.5 (DXA) at the femoral neck, total hip, or spine, afterappropriate evaluation to exclude secondary causes. Low bone mass (T-score between -1.0 and -2.5 at the femoral neck or spine)AND a 10-year probability of a hip fracture = 3% OR a 10-year probability of a majorosteoporosis-related fracture = 20% based on the [place]-adapted WHO algorithm Please note that all treatment decisions require clinical judgment andconsideration of individual patient factors, including patient preferences, co- morbidities,previous drug use, risk factors not captured in the FRAX model (e.g., frailty, falls, vitaminD deficiency, increased bone turnover, interval significant decline in bone density) andpossible under- or over-estimation of fracture risk by FRAX. Optional alternative screening schedule based on cherrie Simeon al., [place]January 2011 for patients with osteopenia (based on hip BMD T-score) is as follows: * advanced osteopenia (T scores -2.00 to -2.49), BMD testing every year * moderate osteopenia (T scores -1.50 to -1.99), BMD testing every 5years mild osteopenia or normal BMD (T scores -1.50 and higher), BMD testingevery 15 years [facility] Final Result from Last 3 Months or Most Recently Relevant to Health Maintenance Insurance [employer] Care Teams Optical Instrument Inspector Relationship Specialty Start Date End Date Nicolasa Shelton DO [address] [facility] [place] [address] PCP - General Internal Medicine 05/26/24
--- NOTE | 2024-12-15 11:21 | MHC.OFFVIS ---
Vital Signs 12/15/24 11:22 Weight 211 lb 10.3 oz BP 132/64 Blood Pressure Location Lt brachial Position Sitting Pulse 88 Pulse Source Pulse Oximeter Pulse Oximetry (%) 94 Oxygen Delivery Method Room Air Intake Visit Reasons: 6MW Refund Specialist Required: No Allergies Penicillins Allergy (Severe, Verified 12/15/24 11:22) Rash/Hives Sulfa (Sulfonamide Antibiotics) Allergy (Severe, Verified 12/15/24 11:22) Rash/Hives Contrast Dye Allergy (Severe, Uncoded 12/15/24 11:22) Rash Medication List - Last Reconciled 12/15/24 by Edna Simon LPN albuterol sulfate 90 mcg/actuation 2 inhalations inhalation Q6H PRN benzonatate 200 mg PO BID PRN 30 days brexpiprazole (Rexulti) 3 mg PO DAILY hmcveiekmq-uodjmizf-vjfyuowpox 160-9-4.8 mcg/actuation (Breztri Aerosphere) 2 inhalations inhalation BID celecoxib (Celebrex) 50 mg PO DAILY 30 days dextromethorphan-guaifenesin 5-100 mg/5 mL (Robitussin Cough-Chest Congestion DM) 10 mL PO Q6H PRN 30 days empagliflozin (Jardiance) 25 mg PO DAILY fluticasone propionate 50 mcg/actuation 2 sprays intranasal DAILY hydroxyzine pamoate 50 mg PO TID insulin aspart U-100 units subcut insulin lispro (Humalog KwikPen (U-100) Insulin) subcut ipratropium bromide 17 mcg/actuation inhalation lisinopril 20 mg PO DAILY loratadine 10 mg PO DAILY 30 days meclizine 25 mg (2 x 12.5 mg) PO BID PRN 10 days metformin 1,000 mg PO BID metoprolol succinate ER 100 mg PO DAILY omeprazole 20 mg PO DAILY rosuvastatin 10 mg PO BEDTIME sertraline 100 mg PO DAILY sumatriptan succinate 50 mg PO tiotropium bromide 2.5 mcg/actuation (Spiriva Respimat) 2 puffs inhalation DAILY 30 days topiramate 25 mg PO BID trazodone 50 mg PO BEDTIME zolpidem 10 mg PO BEDTIME PRN PFSH Medical History (Updated 11/23/24 @ 15:20 by Hamilton Akhtar MD) ILD (interstitial lung disease) Cough due to IVY inhibitor Dyspnea YAMILETH on CPAP COPD (chronic obstructive pulmonary disease) Family History (Updated 04/23/20 @ 21:04 by Hamilton Akhtar MD) Other Asthma Social History Patient Tobacco Use Status: Never used Tobacco Physical Exam Vital Signs: Last Vital Signs Pulse 88 12/15/24 11:22 BP 132/64 12/15/24 11:22 Pulse Ox 94 12/15/24 11:22 Oxygen Delivery Method Room Air 12/15/24 11:22 Office Procedures 6 Minute Walk Time:: 11:10 SPO2 % at rest: 94 Pulse at rest: 81 SPO2 % during excercise: 92 Pulse during excercise: 96 SPO2 % after excercise: 95 Pulse after excercise: 90 Distance in yards walked: 300 Mariluz Score: 3 Performance Observations:: Elvia walked on level ground without assistance. She walked on room air for the entire walk, she maintained her SPO2 92-94%, no supplemental O2 needed. [id number] - 6 Minute Walk Assessment & Plan Assessment & Plan (1) COPD (chronic obstructive pulmonary disease): Code(s): J44.9 - Chronic obstructive pulmonary disease, unspecified Category: Medical Qualifiers: COPD type: chronic bronchitis Chronic bronchitis type: simple Qualified Code(s): J41.0 - Simple chronic bronchitis Plan 6MWT Orders: Orders AMB 6 minute walk 12/15/24 J41.0 - Simple chronic bronchitis Coding Level of Care Code Established Pt Est Pt Level 1 (58435) Patient Type Established Diagnoses Simple chronic bronchitis J41.0 COPD type: chronic bronchitis Chronic bronchitis type: simple CPT Codes Coding ([id number]) Comment NURSE VISIT ONLY
[2024-12-15 11:22] VITALS: BP 132/64; PULSE 88; O2SAT 94
[2024-12-15 11:24] VITALS: PULSE 81; O2SAT 94
== END 2024-12-15 11:30 | disposition home or self-care (01) ==
LOC: HO.HPS 11:05
PROVIDERS: PCP Family Medicine; Visit Provider Hospitalist
DX: J44.9 Chronic obstructive pulmonary disease, unspecified (principal)

== ENCOUNTER → 2024-12-15 11:04 | Outpatient (BNVA) | payer OTHER, SELFPAY | PROVIDERS: PCP Family Medicine; Visit Provider Hospitalist | DX: J41.0 Simple chronic bronchitis (principal) | CPT/HCPCS: 94618; 99211 ==